=== PATIENT | female | born 1935 | race Caucasian/White ===

== ENCOUNTER 2018-11-22 08:06 | Day surgery (SDC) | payer MEDICARE, OTHER ==
[~2018-11-22] VITALS: Ht 170.2 cm; Wt 56.8 kg
[2018-11-22] MEDS ORDERED: APIX2.5T PO (09:43)
[2018-11-22] MEDS ORDERED: AMIO200T42 PO (09:43)
[2018-11-22] MEDS ORDERED: LOVA20TA2 PO (09:43)
[2018-11-22] MEDS ORDERED: LEVO25TA4 PO (09:43)
[2018-11-22] MEDS ORDERED: ASPI-496 PO (09:48)
[2018-11-22 09:57] LABS: ANION GAP 7 mmol/L (5-15); CALCIUM 8.6 mg/dL (8.5-10.1); CHLORIDE 111 mmol/L (98-107); CREATININE 1.29 mg/dL (0.55-1.02)
[2018-11-22] MEDS ORDERED: PROPOFOL 10 MG/ML, 20ML ONE (12:05)
== END 2018-11-22 13:48 | disposition home or self-care (01) ==
LOC: CACL 08:06
PROVIDERS: ATTEND Internal Medicine Cardiovascular Disease
DX: I48.91 Unspecified atrial fibrillation (principal); E78.5 Hyperlipidemia, unspecified; I25.10 Atherosclerotic heart disease of native coronary artery without angina pectoris; Z79.899 Other long term (current) drug therapy; Z98.890 Other specified postprocedural states
CPT/HCPCS: 36415; 80048; 92960; J2704

== ENCOUNTER 2019-06-08 13:13 | Observation (INO) | payer MEDICARE ==
[~2019-06-08] VITALS: Ht 170.2 cm; Wt 56.5 kg
[~2019-06-08 13:13] MED LIST: AMIO200T42 PO; APIX2.5T PO; ASPI-496 PO; LEVO25TA4 PO; LOVA20TA2 PO; SENN-177 PO; TAMS-11 PO
--- NOTE | 2019-06-08 13:30 | NUR ---
PT BIB [facility] FOR FEELING LIGHTHEADED, LEGS WEAK AND BOTH ARMS HURTED WHILE WALKING. PT DENIED ANY CP OR SOB. [facility] HAD A HEAR RATE OF 223 [employer] WORK[employer] AND GAVE 500 MLS OF NS AND PT CAME DOWN TO 110 AFTER BEING IN AMBULANCE. PT ON MONITOR, DENEIS ANY CP OR SOB NOW. PT GIVEN CALL LIGHT AND UPDATED ON POC.
[2019-06-08] MEDS ORDERED: SODIUM CHLORIDE FLUSH 10ML SYR IVF ONE (14:00)
[2019-06-08] MEDS ORDERED: SODIUM CHLORIDE 0.9% 1,000ML IVBOLUS ONE (14:00)
[2019-06-08] MEDS ORDERED: LOSARTAN PO (14:04)
--- NOTE | 2019-06-08 14:25 | NUR ---
PT UP TO RESTROOM WITH ASSIAT FOR UA SPECIMEN. PT C/O MINMAL LEG WEAKNESS. WHILE WALKING, DENIED DIZZINESS.
[2019-06-08 14:27] LABS: BASOPHILS # (AUTO) 0.03 x10^3/uL (0-0.1); BASOPHILS % (AUTO) 1 % (0-1); EOSINOPHILS # (AUTO) 0.04 x10^3/uL (0-0.4); EOSINOPHILS % (AUTO) 1 % (1-7); LYMPHOCYTES # (AUTO) 0.89 x10^3/uL (1-3.4); LYMPHOCYTES % (AUTO) 19 % (22-44); MD NO; MEAN CORPUSCULAR HEMOGLOBIN 32.1 pg (27.0-34.8); MEAN CORPUSCULAR HGB CONC 32.7 g/dL (32.4-35.8); MEAN CORPUSCULAR VOLUME 98.1 fL (80-100); MEAN PLATELET VOLUME 8.4 fL (7.4-10.4); MONOCYTES # (AUTO) 0.32 x10^3/uL (0.2-0.8); MONOCYTES % (AUTO) 7 % (2-9); NEUTROPHILS # (AUTO) 3.51 x10^3/uL (1.8-6.8); NEUTROPHILS % (AUTO) 73 % (42-75); PLATELET COUNT 195 x10^3/uL (130-400); RED BLOOD COUNT 3.54 x10^6/uL (3.82-5.3)
[2019-06-08 14:32] LABS: ALANINE AMINOTRANSFERASE 15 U/L (12-78); ALBUMIN 3.8 g/dL (3.4-5.0); ANION GAP 5 mmol/L (5-15); CALCIUM 8.6 mg/dL (8.5-10.1); CHLORIDE 110 mmol/L (98-107); CREATININE 1.21 mg/dL (0.55-1.02)
[2019-06-08 14:36] LABS: ALKALINE PHOSPHATASE 81 U/L (45-117); BILIRUBIN,TOTAL 0.4 mg/dL (0.2-1.0); TOTAL PROTEIN 6.9 g/dL (6.4-8.2); TROPONIN I 0.019 ng/mL (0.000-0.045)
[2019-06-08 14:44] LABS: MICROSCOPIC NOT IND
[2019-06-08 14:45] LABS: CULTURE INDICATED? NO
--- NOTE | 2019-06-08 14:52 | NUR ---
CHART UP FOR MD RECHECK. PT AWARE.
[2019-06-08] MEDS ORDERED: FUROSEMIDE 40 MG/4 ML ONE (15:54)
[2019-06-08] MEDS ORDERED: METOPROLOL TARTRATE 25 MG TABLET ONE (15:55)
[2019-06-08] MEDS ORDERED: FUROSEMIDE 40 MG/4 ML IV ONE (16:00)
[2019-06-08] MEDS ORDERED: METOPROLOL TARTRATE 25 MG TABLET PO ONE (16:00)
[2019-06-08] MEDS ORDERED: DOCUSATE 100 MG CAPSULE PO PRN (16:30)
[2019-06-08] MEDS ORDERED: POLYETHYLENE GLYCOL 17 GM PACKET PO PRN (16:30)
[2019-06-08] MEDS ORDERED: MAGNESIUM SULFATE PMX 2GM/50ML 50 ML IV ONE (16:30)
[2019-06-08] MEDS ORDERED: ACETAMINOPHEN 325 MG TABLET PO PRN (16:30)
[2019-06-08] MEDS ORDERED: ONDANSETRON ODT 4 MG PO PRN (16:30)
[2019-06-08] MEDS: METOPROLOL TARTRATE 25 MG TABLET PO SCH (16:30)
[2019-06-08 16:47] LABS: CHOLESTEROL, TOTAL 100 mg/dL (140-239); TRIGLYCERIDES 60 mg/dL (50-200); VLDL CHOLESTEROL 12 mg/dL (0-25)
[2019-06-08 16:49] LABS: CHOL/HDL RATIO 1.9; HDL CHOL % 53 % (28-40); HDL CHOLESTEROL (DIRECT) 53 mg/dL (40-60); LDL CHOLESTEROL,CALCULATED 35 mg/dL (54-169); LDL/HDL RATIO 0.7 (0.5-3.0); TROPONIN I 0.023 ng/mL (0.000-0.045)
[2019-06-08 17:04] VITALS: BP 128/78
[2019-06-08 18:44] VITALS: BP 105/60
[2019-06-08] MEDS: APIXABAN 2.5 MG TABLET PO SCH (20:18)
[2019-06-08] MEDS: SODIUM CHLORIDE FLUSH 10ML SYR IVF SCH (20:19)
[2019-06-08] MEDS ORDERED: LOVASTATIN 20 MG TABLET PO SCH (21:00)
[2019-06-09 00:44] VITALS: BP 112/76
[2019-06-09] MEDS: METOPROLOL TARTRATE 25 MG TABLET PO SCH (00:54)
[2019-06-09 04:52] LABS: BASOPHILS # (AUTO) 0.04 x10^3/uL (0-0.1); BASOPHILS % (AUTO) 1 % (0-1); EOSINOPHILS # (AUTO) 0.05 x10^3/uL (0-0.4); EOSINOPHILS % (AUTO) 1 % (1-7); LYMPHOCYTES # (AUTO) 1.94 x10^3/uL (1-3.4); LYMPHOCYTES % (AUTO) 38 % (22-44); MD NO; MEAN CORPUSCULAR HEMOGLOBIN 32.6 pg (27.0-34.8); MEAN CORPUSCULAR HGB CONC 33.1 g/dL (32.4-35.8); MEAN CORPUSCULAR VOLUME 98.5 fL (80-100); MEAN PLATELET VOLUME 8.5 fL (7.4-10.4); MONOCYTES # (AUTO) 0.61 x10^3/uL (0.2-0.8); MONOCYTES % (AUTO) 12 % (2-9); NEUTROPHILS # (AUTO) 2.43 x10^3/uL (1.8-6.8); NEUTROPHILS % (AUTO) 48 % (42-75); PLATELET COUNT 190 x10^3/uL (130-400); RED BLOOD COUNT 3.34 x10^6/uL (3.82-5.3); RED CELL DISTRIBUTION WIDTH 15.7 % (9.6-15.2)
[2019-06-09 05:00] LABS: CHLORIDE 112 mmol/L (98-107)
[2019-06-09 05:04] LABS: ALANINE AMINOTRANSFERASE 12 U/L (12-78); ALBUMIN 3.4 g/dL (3.4-5.0); ALKALINE PHOSPHATASE 72 U/L (45-117); ANION GAP 7 mmol/L (5-15); BILIRUBIN,TOTAL 0.3 mg/dL (0.2-1.0); CALCIUM 8.5 mg/dL (8.5-10.1); CREATININE 1.29 mg/dL (0.55-1.02); TOTAL PROTEIN 6.2 g/dL (6.4-8.2)
[2019-06-09 07:37] VITALS: BP 91/46
[2019-06-09] MEDS: APIXABAN 2.5 MG TABLET PO SCH (08:28)
[2019-06-09] MEDS: SODIUM CHLORIDE FLUSH 10ML SYR IVF SCH (08:28)
[2019-06-09] MEDS ORDERED: AMIODARONE 200 MG TABLET PO SCH (09:00)
[2019-06-09] MEDS ORDERED: ASPIRIN 81 MG TABLET EC PO SCH (09:00)
[2019-06-09] MEDS ORDERED: LEVOTHYROXINE 25 MCG TABLET PO SCH (09:00)
[2019-06-09] MEDS ORDERED: METOPROLOL SUCCINATE 25 MG TAB.ER.24H PO SCH (09:30)
[2019-06-09] MEDS ORDERED: METO25TA91 PO (09:44)
--- NOTE | 2019-06-09 11:34 | NUR ---
REC: Reg/thins; no swallowing precautions indicated Addendum: 06/09/19 at 1135 by Hailey ROSARIO Amended: Links added.
[2019-06-09 13:59] VITALS: BP 147/76
== END 2019-06-09 16:29 | disposition home or self-care (01) ==
LOC: ED 15:23 → EDIP 15:24 → INTOOBSV 15:24 → ED 15:47 → 5SO 16:57 → DCLOUNGE 06-09 16:20
PROVIDERS: ADMIT Internal Medicine; ATTEND Internal Medicine
DX: I48.0 Paroxysmal atrial fibrillation (principal); D68.69 Other thrombophilia; I48.4 Atypical atrial flutter; E03.9 Hypothyroidism, unspecified; E04.2 Nontoxic multinodular goiter; E78.5 Hyperlipidemia, unspecified; E83.42 Hypomagnesemia; I25.10 Atherosclerotic heart disease of native coronary artery without angina pectoris; I25.2 Old myocardial infarction; I50.9 Heart failure, unspecified; I44.0 Atrioventricular block, first degree; K59.00 Constipation, unspecified; N18.3 Chronic kidney disease, stage 3 (moderate); N20.0 Calculus of kidney; Z87.891 Personal history of nicotine dependence; Z79.82 Long term (current) use of aspirin
CPT/HCPCS: 36415; 71045; 80053; 80061; 81003; 83735; 83880; 84100; 84439; 84443; 84484; 85025; 92610; 93005; 93306; 96365; 96366; 96375; 99285; G0378; J1940; J3475; J7030

== ENCOUNTER 2019-06-11 19:01 | Observation (INO) | payer MEDICARE ==
[~2019-06-11] VITALS: Ht 170.2 cm; Wt 57.7 kg
[~2019-06-11 19:01] MED LIST changes: +LOSARTAN PO; +METO25TA91 PO
[2019-06-11] MEDS ORDERED: DILTIAZEM 5 MG/ML, 5ML ONE (19:03)
[2019-06-11] MEDS ORDERED: METOPROLOL 1 MG/ML, 5ML IVPush ONE (19:06)
[2019-06-11] MEDS ORDERED: METOPROLOL 1 MG/ML, 5ML ONE (19:19)
[2019-06-11] MEDS ORDERED: ASPIRIN 81 MG TABLET CHEW PO ONE (19:30)
[2019-06-11] MEDS ORDERED: DILTIAZEM 5 MG/ML, 5ML IVPush ONE (19:30)
--- NOTE | 2019-06-11 19:30 | NUR ---
PT BROUGHT IN BY EMS WITH TACHYCARDIA AND AFIB. PT PUT ON MONITORING, PT HR 132 AT ADMIT. PT REPORTS NO CHEST PAIN. EKG PERFORMED ON ADMIT, AFIB CONFIRMED. PT GIVEN DILTIAZEM, METOPROLOL, AND 81MG ASPIRIN PER OCT. REPEAT EKG PERFORMED, HR NOW IN 80S. ALL PT NEEDS MET AND QUESTIONS ANSWERED.
[2019-06-11] MEDS ORDERED: ASPIRIN 81 MG TABLET CHEW ONE (19:33)
[2019-06-11 19:36] LABS: ALANINE AMINOTRANSFERASE 13 U/L (12-78); ALBUMIN 3.9 g/dL (3.4-5.0); ANION GAP 10 mmol/L (5-15); CALCIUM 8.8 mg/dL (8.5-10.1); CHLORIDE 110 mmol/L (98-107); CREATININE 1.21 mg/dL (0.55-1.02)
[2019-06-11 19:37] LABS: BASOPHILS # (AUTO) 0.02 x10^3/uL (0-0.1); BASOPHILS % (AUTO) 0 % (0-1); EOSINOPHILS # (AUTO) 0.03 x10^3/uL (0-0.4); EOSINOPHILS % (AUTO) 1 % (1-7); LYMPHOCYTES # (AUTO) 1.48 x10^3/uL (1-3.4); LYMPHOCYTES % (AUTO) 29 % (22-44); MD NO; MEAN CORPUSCULAR HEMOGLOBIN 32.4 pg (27.0-34.8); MEAN CORPUSCULAR HGB CONC 32.8 g/dL (32.4-35.8); MEAN CORPUSCULAR VOLUME 98.8 fL (80-100); MEAN PLATELET VOLUME 8.2 fL (7.4-10.4); MONOCYTES # (AUTO) 0.55 x10^3/uL (0.2-0.8); MONOCYTES % (AUTO) 11 % (2-9); NEUTROPHILS # (AUTO) 3.13 x10^3/uL (1.8-6.8); NEUTROPHILS % (AUTO) 60 % (42-75); PLATELET COUNT 204 x10^3/uL (130-400); RED BLOOD COUNT 3.84 x10^6/uL (3.82-5.3)
[2019-06-11 19:40] LABS: ALKALINE PHOSPHATASE 87 U/L (45-117); BILIRUBIN,TOTAL 0.4 mg/dL (0.2-1.0); TOTAL PROTEIN 7.5 g/dL (6.4-8.2); TROPONIN I 0.026 ng/mL (0.000-0.045)
[2019-06-11 20:02] LABS: INTERNATIONAL NORMALIZED RATIO 1.03 (0.93-1.1); PROTHROMBIN TIME 10.8 Seconds (9.6-11.5)
--- NOTE | 2019-06-11 20:10 | NUR ---
CARDS CALLED AT 2006
--- NOTE | 2019-06-11 20:42 | NUR ---
FIRST ATTEMPT TO GIVE REPORT.
--- NOTE | 2019-06-11 20:50 | NUR ---
REPORT GIVEN TO SUNIL BURKS.
[2019-06-11] MEDS: MELATONIN 3 MG TABLET PO SCH ×2 (21:00→22:56)
[2019-06-11 21:27] VITALS: BP 113/74
[2019-06-11] MEDS ORDERED: LABETALOL 5MG/ML, 20ML IVPush PRN (21:30)
[2019-06-11] MEDS ORDERED: ACETAMINOPHEN 325 MG TABLET PO PRN (21:30)
[2019-06-11] MEDS ORDERED: ONDANSETRON 2MG/ML, 2ML IVPush PRN (21:30)
[2019-06-11] MEDS ORDERED: DOCUSATE 100 MG CAPSULE PO PRN (21:30)
[2019-06-12 01:37] VITALS: BP 104/63
[2019-06-12 01:56] LABS: TROPONIN I 0.181 ng/mL (0.000-0.045)
[2019-06-12 07:18] VITALS: BP 110/56
[2019-06-12 07:30] LABS: ANION GAP 7 mmol/L (5-15); CALCIUM 8.4 mg/dL (8.5-10.1); CHLORIDE 112 mmol/L (98-107)
[2019-06-12 07:32] LABS: MEAN CORPUSCULAR HEMOGLOBIN 32.2 pg (27.0-34.8); MEAN CORPUSCULAR HGB CONC 33.1 g/dL (32.4-35.8); MEAN CORPUSCULAR VOLUME 97.3 fL (80-100); PLATELET COUNT 178 x10^3/uL (130-400); RED BLOOD COUNT 3.49 x10^6/uL (3.82-5.3); RED CELL DISTRIBUTION WIDTH 15.9 % (9.6-15.2)
[2019-06-12 07:35] LABS: CREATININE 1.13 mg/dL (0.55-1.02); TROPONIN I 0.058 ng/mL (0.000-0.045)
[2019-06-12 07:58] LABS: MD YES
[2019-06-12 08:01] LABS: BASOS#(MANUAL) 0.08 x10^3/uL (0-0.1); BASOS% (MANUAL) 2 % (0-1); EOS#(MANUAL) 0.04 x10^3/uL (0.0-0.4); EOS% (MANUAL) 1 % (1-7); LYMPHS% (MANUAL) 36 % (22-44); MONOS#(MANUAL) 0.47 x10^3/uL (0.3-2.7); MONOS% (MANUAL) 12 % (2-9); REACTIVE LYMPHS # (MANUAL) 0.08 x10^3/uL (0-0); REACTIVE LYMPHS % (MANUAL) 2 % (0-0); SEG#(MANUAL) 1.83 x10^3/uL (1.8-6.8); SEGS% (MANUAL) 47 % (42-75)
[2019-06-12 08:03] LABS: <PLATELET ESTIMATE> ADEQUATE; <PLT MORPHOLOGY> NORMAL PLT MORPH; ANISOCYTOSIS 1+
[2019-06-12] MEDS: METOPROLOL SUCCINATE 25 MG TAB.ER.24H PO SCH (10:56)
[2019-06-12 12:18] VITALS: BP 90/56
[2019-06-12 20:18] VITALS: BP 111/72
[2019-06-12] MEDS: APIXABAN 2.5 MG TABLET PO SCH (20:19)
[2019-06-12] MEDS: MELATONIN 3 MG TABLET PO SCH (20:21)
[2019-06-13 03:55] VITALS: BP 108/70
[2019-06-13] MEDS: METOPROLOL SUCCINATE 25 MG TAB.ER.24H PO SCH (05:54)
[2019-06-13 06:29] VITALS: BP 115/64
[2019-06-13] MEDS ORDERED: LEVOTHYROXINE 25 MCG TABLET PO SCH (08:30)
[2019-06-13] MEDS: APIXABAN 2.5 MG TABLET PO SCH (09:10)
[2019-06-13 12:14] VITALS: BP 119/58
[2019-07-24] MEDS ORDERED: POTA20TA14 PO (16:50)
[2019-07-24] MEDS ORDERED: FURO40TA6 PO (16:50)
[2019-07-28] MEDS ORDERED: ATOR40TA78 PO (13:14)
[2019-07-28] MEDS ORDERED: ASPI81TA45 PO (13:14)
[2019-07-28] MEDS ORDERED: CEFD300C37 PO ×2 (13:14)
[2019-07-28] MEDS ORDERED: METO-93 PO (13:14)
[2019-07-28] MEDS ORDERED: ERGO500017 PO (13:14)
[2019-07-28] MEDS ORDERED: DIGO125T PO (13:14)
== END 2019-06-13 12:40 | disposition home or self-care (01) ==
LOC: ED 20:06 → INTOOBSV 20:07 → EDIP 20:07 → 5SO 21:00 → DCLOUNGE 06-13 12:30
PROVIDERS: ADMIT Internal Medicine; ATTEND Internal Medicine
DX: I48.0 Paroxysmal atrial fibrillation (principal); E03.9 Hypothyroidism, unspecified; E78.5 Hyperlipidemia, unspecified; I25.10 Atherosclerotic heart disease of native coronary artery without angina pectoris; I25.2 Old myocardial infarction; I50.9 Heart failure, unspecified; N18.3 Chronic kidney disease, stage 3 (moderate); Z79.01 Long term (current) use of anticoagulants; Z87.891 Personal history of nicotine dependence; Z95.5 Presence of coronary angioplasty implant and graft; Z91.14 Patient's other noncompliance with medication regimen; Z79.82 Long term (current) use of aspirin
CPT/HCPCS: 36415; 71045; 80048; 80053; 83605; 84484; 85025; 85610; 85730; 93005; 96374; 96375; 99285; G0378

== ENCOUNTER 2019-07-31 22:06 | Observation (INO) | payer MEDICARE, OTHER ==
[~2019-07-31] VITALS: Ht 175.3 cm; Wt 60.7 kg
[~2019-07-31 22:06] MED LIST changes: +ASPI81TA45 PO; +ATOR40TA78 PO; +CEFD300C37 PO; +DIGO125T PO; +ERGO500017 PO; +FURO40TA6 PO; +METO-93 PO; +POTA20TA14 PO
--- NOTE | 2019-07-31 22:21 | NUR ---
Patient BIB ambulance and states she ate meals on wheels tonight then experienced abd pain, N/V. This started around 1800. Patient states she vomited approx 4 times. She is unable to have a bowel movement. Patient appears nauseous. Lower abd quadrant firm and tender.
[2019-07-31] MEDS ORDERED: ONDANSETRON 2MG/ML, 2ML ONE (22:29)
[2019-07-31] MEDS ORDERED: SODIUM CHLORIDE FLUSH 10ML SYR IVF ONE (22:30)
[2019-07-31] MEDS ORDERED: ONDANSETRON 2MG/ML, 2ML IVPush ONE (23:00)
[2019-07-31] MEDS ORDERED: MORPHINE SULFATE 4 MG/ML, 1ML ONE (23:01)
[2019-07-31] MEDS: MORPHINE SULFATE 4 MG/ML, 1ML IVPush PRN (23:03)
--- NOTE | 2019-07-31 23:19 | NUR ---
Patient states her pain decreased from a 8/10 to a 5/10.
[2019-07-31] MEDS ORDERED: FENTANYL PF 100 MCG/2ML ONE (23:41)
--- NOTE | 2019-07-31 23:44 | NUR ---
CT PENDING LAB/CREATINE.
[2019-07-31 23:52] LABS: BASOPHILS # (AUTO) 0.04 x10^3/uL (0-0.1); BASOPHILS % (AUTO) 0 % (0-1); EOSINOPHILS # (AUTO) 0.07 x10^3/uL (0-0.4); EOSINOPHILS % (AUTO) 1 % (1-7); LYMPHOCYTES # (AUTO) 1.11 x10^3/uL (1-3.4); LYMPHOCYTES % (AUTO) 13 % (22-44); MD NO; MEAN CORPUSCULAR HEMOGLOBIN 31.7 pg (27.0-34.8); MEAN CORPUSCULAR HGB CONC 32.1 g/dL (32.4-35.8); MEAN CORPUSCULAR VOLUME 98.7 fL (80-100); MEAN PLATELET VOLUME 8.5 fL (7.4-10.4); MONOCYTES # (AUTO) 0.39 x10^3/uL (0.2-0.8); MONOCYTES % (AUTO) 5 % (2-9); NEUTROPHILS # (AUTO) 6.77 x10^3/uL (1.8-6.8); NEUTROPHILS % (AUTO) 81 % (42-75); PLATELET COUNT 213 x10^3/uL (130-400); RED BLOOD COUNT 3.79 x10^6/uL (3.82-5.3); RED CELL DISTRIBUTION WIDTH 15.4 % (9.6-15.2)
[2019-08-01] MEDS ORDERED: SODIUM CHLORIDE 0.9% 1,000ML IVBOLUS ONE
[2019-08-01] MEDS ORDERED: FENTANYL PF 100 MCG/2ML IV ONE
[2019-08-01 00:01] LABS: ALANINE AMINOTRANSFERASE 22 U/L (12-78); ALBUMIN 3.5 g/dL (3.4-5.0); ANION GAP 8 mmol/L (5-15); CALCIUM 8.7 mg/dL (8.5-10.1); CHLORIDE 112 mmol/L (98-107); CREATININE 1.28 mg/dL (0.55-1.02)
[2019-08-01 00:03] LABS: ALKALINE PHOSPHATASE 131 U/L (45-117); BILIRUBIN,TOTAL 0.6 mg/dL (0.2-1.0); TOTAL PROTEIN 6.9 g/dL (6.4-8.2)
--- NOTE | 2019-08-01 00:22 | NUR ---
urinary catheter difficult to place w/ multiple rn's attempting. Md at bedside to attempt valero. Valero accomplished and approximately 500 ml of dark yellow urine output noted. Pt tx to ct at this time.
[2019-08-01] MEDS ORDERED: OMNIPAQUE 350 MG/ML, 100ML BOTTLE ONE (00:36)
[2019-08-01 01:21] LABS: MICROSCOPIC NOT IND
[2019-08-01 01:23] LABS: CULTURE INDICATED? NO
[2019-08-01] MEDS ORDERED: SODIUM CHLORIDE 0.9% 1,000 ML IV SCH (01:24)
[2019-08-01] MEDS ORDERED: ERGOCALCIFEROL 50,000 UNIT CAPSULE PO SCH (01:30)
[2019-08-01] MEDS ORDERED: hydrALAzine 20 MG/ML, 1ML IVPush PRN (01:30)
[2019-08-01] MEDS ORDERED: ONDANSETRON ODT 4 MG PO PRN (01:30)
[2019-08-01] MEDS ORDERED: PROMETHAZINE 25 MG/ML, 1ML IM PRN (01:30)
[2019-08-01] MEDS ORDERED: DOCUSATE 100 MG CAPSULE PO PRN (01:30)
[2019-08-01] MEDS ORDERED: ONDANSETRON 2MG/ML, 2ML IVPush PRN (01:30)
[2019-08-01] MEDS ORDERED: CEFTRIAXONE PMX 2GM/50ML 50 ML IV SCH (01:30)
[2019-08-01] MEDS ORDERED: OXYcodone IR 5MG TABLET PO PRN ×2 (01:30→09:00)
[2019-08-01] MEDS ORDERED: METRONIDAZOLE PMX 500MG/100ML 100 ML IV SCH (01:30)
[2019-08-01] MEDS ORDERED: ACETAMINOPHEN 325 MG TABLET PO PRN ×2 (01:30→09:00)
[2019-08-01] MEDS ORDERED: morphine SULFATE 10 MG/ML, 1ML IVPush PRN ×2 (01:30→10:30)
[2019-08-01 04:11] LABS: FREE T4 (FREE THYROXINE) 1.41 ng/dL (0.76-1.46)
[2019-08-01 04:27] VITALS: BP 116/66
[2019-08-01] MEDS: MORPHINE SULFATE 4 MG/ML, 1ML IVPush PRN ×2 (04:35→04:36)
[2019-08-01] MEDS: ASPIRIN 81 MG TABLET EC PO SCH (06:52)
[2019-08-01 07:22] VITALS: BP 104/58
[2019-08-01] MEDS: METOPROLOL SUCCINATE 50 MG TAB.ER.24H PO SCH (08:59)
[2019-08-01] MEDS: APIXABAN 2.5 MG TABLET PO SCH ×2 (08:59→20:17)
[2019-08-01] MEDS ORDERED: LEVOTHYROXINE 25 MCG TABLET PO SCH (09:00)
[2019-08-01] MEDS ORDERED: DIGOXIN 0.125 MG TABLET PO SCH (09:00)
[2019-08-01] MEDS ORDERED: ACID1TAB7 PO (11:15)
[2019-08-01 13:21] VITALS: BP 108/72
[2019-08-01 20:38] VITALS: BP 114/60
[2019-08-01] MEDS ORDERED: ATORVASTATIN 40 MG TABLET PO SCH (21:00)
[2019-08-02] MEDS ORDERED: SODIUM CHLORIDE 0.9% 1,000 ML IV SCH (01:24)
[2019-08-02 02:00] VITALS: BP 115/58
[2019-08-02] MEDS: ASPIRIN 81 MG TABLET EC PO SCH (05:54)
[2019-08-02 07:24] VITALS: BP 112/67
[2019-08-02 08:51] VITALS: BP 99/61
[2019-08-02 08:54] VITALS: BP 95/47
[2019-08-02 08:56] VITALS: BP 99/43
[2019-08-02] MEDS: APIXABAN 2.5 MG TABLET PO SCH (09:08)
[2019-08-02] MEDS: METOPROLOL SUCCINATE 50 MG TAB.ER.24H PO SCH (09:08)
[2019-08-03] MEDS ORDERED: DIGOXIN 0.125 MG TABLET PO SCH (09:00)
== END 2019-08-02 10:42 | disposition home health service (06) ==
LOC: ED 08-01 00:09 → EDIP 08-01 00:59 → INTOOBSV 08-01 00:59 → 5SO 08-01 01:58
PROVIDERS: ADMIT Internal Medicine; ATTEND Internal Medicine
DX: K52.9 Noninfective gastroenteritis and colitis, unspecified (principal); R33.9 Retention of urine, unspecified; N18.3 Chronic kidney disease, stage 3 (moderate); I95.9 Hypotension, unspecified; I48.91 Unspecified atrial fibrillation; E03.9 Hypothyroidism, unspecified; E78.5 Hyperlipidemia, unspecified; G47.00 Insomnia, unspecified; I25.10 Atherosclerotic heart disease of native coronary artery without angina pectoris; I25.2 Old myocardial infarction; I50.9 Heart failure, unspecified; I73.00 Raynaud's syndrome without gangrene; M32.9 Systemic lupus erythematosus, unspecified; Z80.1 Family history of malignant neoplasm of trachea, bronchus and lung; Z87.442 Personal history of urinary calculi; Z87.891 Personal history of nicotine dependence; Z90.49 Acquired absence of other specified parts of digestive tract; Z79.01 Long term (current) use of anticoagulants; Z79.82 Long term (current) use of aspirin; Z90.710 Acquired absence of both cervix and uterus; Z79.899 Other long term (current) drug therapy
CPT/HCPCS: 36415; 74177; 80053; 80162; 81003; 83036; 83690; 83735; 84439; 84443; 85025; 93005; 96361; 96365; 96375; 97162; 97165; 99291; G0378; J2270; J3010; J7030; Q9967; 96374

== ENCOUNTER 2019-08-04 23:23 | Observation (INO) | payer MEDICARE, OTHER ==
[~2019-08-04] VITALS: Ht 175.3 cm; Wt 56.0 kg
[~2019-08-04 23:23] MED LIST changes: +ACID1TAB7 PO
[2019-08-04] MEDS ORDERED: DICYCLOMINE 20 MG TABLET ONE (23:47)
[2019-08-04] MEDS ORDERED: ACETAMINOPHEN 325 MG TABLET ONE (23:47)
[2019-08-05] MEDS ORDERED: DICYCLOMINE 20 MG TABLET PO ONE
[2019-08-05] MEDS ORDERED: ONDANSETRON 2MG/ML, 2ML IVPush ONE
[2019-08-05] MEDS ORDERED: ACETAMINOPHEN 325 MG TABLET PO ONE
[2019-08-05] MEDS ORDERED: ONDANSETRON 2MG/ML, 2ML ONE (00:08)
[2019-08-05 00:13] LABS: BASOPHILS # (AUTO) 0.01 x10^3/uL (0-0.1); BASOPHILS % (AUTO) 0 % (0-1); EOSINOPHILS # (AUTO) 0.05 x10^3/uL (0-0.4); EOSINOPHILS % (AUTO) 1 % (1-7); LYMPHOCYTES # (AUTO) 0.86 x10^3/uL (1-3.4); LYMPHOCYTES % (AUTO) 12 % (22-44); MD NO; MEAN CORPUSCULAR HEMOGLOBIN 31.6 pg (27.0-34.8); MEAN CORPUSCULAR VOLUME 98.8 fL (80-100); MEAN PLATELET VOLUME 8.3 fL (7.4-10.4); MONOCYTES # (AUTO) 0.84 x10^3/uL (0.2-0.8); MONOCYTES % (AUTO) 12 % (2-9); NEUTROPHILS # (AUTO) 5.39 x10^3/uL (1.8-6.8); NEUTROPHILS % (AUTO) 75 % (42-75); PLATELET COUNT 231 x10^3/uL (130-400); RED BLOOD COUNT 3.59 x10^6/uL (3.82-5.3); RED CELL DISTRIBUTION WIDTH 14.5 % (9.6-15.2)
[2019-08-05 00:23] LABS: ANION GAP 8 mmol/L (5-15); CALCIUM 8.2 mg/dL (8.5-10.1); CHLORIDE 106 mmol/L (98-107); CREATININE 1.18 mg/dL (0.55-1.02)
[2019-08-05 00:24] LABS: ALANINE AMINOTRANSFERASE 35 U/L (12-78); ALBUMIN 3.2 g/dL (3.4-5.0)
[2019-08-05 00:26] LABS: ALKALINE PHOSPHATASE 124 U/L (45-117); BILIRUBIN,TOTAL 0.6 mg/dL (0.2-1.0); TOTAL PROTEIN 6.6 g/dL (6.4-8.2)
[2019-08-05] MEDS ORDERED: PINK LADY ENEMA 490 ML BOTTLE PR ONE (00:30)
--- NOTE | 2019-08-05 00:35 | NUR ---
TASK RN: MED REQUEST TUBED TO LAB
[2019-08-05 02:34] VITALS: BP 101/67
[2019-08-05] MEDS ORDERED: POLYETHYLENE GLYCOL 17 GM PACKET PO PRN (05:30)
[2019-08-05] MEDS ORDERED: BISACODYL 10 MG SUPP PR PRN (05:30)
[2019-08-05] MEDS ORDERED: ACETAMINOPHEN 325 MG TABLET PO PRN (05:30)
[2019-08-05] MEDS ORDERED: LABETALOL 5 MG/ML SYR. (IV ONLY) IVPush PRN (05:30)
[2019-08-05] MEDS ORDERED: ONDANSETRON 2MG/ML, 2ML IVPush PRN (05:30)
[2019-08-05] MEDS: ASPIRIN 81 MG TABLET EC PO SCH (06:21)
[2019-08-05] MEDS: LEVOTHYROXINE 25 MCG TABLET PO SCH (06:21)
[2019-08-05] MEDS: METOPROLOL SUCCINATE 50 MG TAB.ER.24H PO SCH (09:56)
[2019-08-05] MEDS: DIGOXIN 0.125 MG TABLET PO SCH (09:57)
[2019-08-05] MEDS: POLYETHYLENE GLYCOL 17 GM PACKET PO SCH (09:57)
[2019-08-05] MEDS: SENNA/DOCUSATE TABLET PO SCH (09:57)
[2019-08-05] MEDS: LACTOBACILLUS CHEW TABLET PO SCH ×3 (09:57→21:12)
[2019-08-05] MEDS: APIXABAN 2.5 MG TABLET PO SCH ×2 (09:57→21:12)
[2019-08-05 10:11] VITALS: BP 104/65
[2019-08-05 15:27] VITALS: BP 100/58
[2019-08-05 20:17] VITALS: BP 100/61
[2019-08-05] MEDS ORDERED: ATORVASTATIN 40 MG TABLET PO SCH (21:00)
[2019-08-06 00:56] VITALS: BP_SYST 102; BP_SYST 110; BP_DIAS 46; BP_DIAS 55
[2019-08-06] MEDS: LEVOTHYROXINE 25 MCG TABLET PO SCH (06:32)
[2019-08-06] MEDS: ASPIRIN 81 MG TABLET EC PO SCH (06:32)
[2019-08-06 06:50] VITALS: BP 106/62
[2019-08-06] MEDS: SENNA/DOCUSATE TABLET PO SCH (09:00)
[2019-08-06] MEDS: POLYETHYLENE GLYCOL 17 GM PACKET PO SCH (09:00)
[2019-08-06] MEDS ORDERED: POLY17PO5 PO (09:23)
[2019-08-06] MEDS ORDERED: DOCU100C33 PO (09:23)
[2019-08-06] MEDS: LACTOBACILLUS CHEW TABLET PO SCH (10:50)
[2019-08-06] MEDS: METOPROLOL SUCCINATE 50 MG TAB.ER.24H PO SCH (10:50)
[2019-08-06] MEDS: APIXABAN 2.5 MG TABLET PO SCH (10:50)
[2019-08-06] MEDS: DIGOXIN 0.125 MG TABLET PO SCH (10:50)
== END 2019-08-06 11:35 | disposition home or self-care (01) ==
LOC: ED 23:37 → INTOOBSV 08-05 00:28 → EDIP 08-05 00:28 → 3N 08-05 01:55 → DCLOUNGE 08-06 11:23
PROVIDERS: ADMIT Family Medicine; ATTEND Family Medicine
DX: K59.00 Constipation, unspecified (principal); E03.9 Hypothyroidism, unspecified; I48.91 Unspecified atrial fibrillation; E78.5 Hyperlipidemia, unspecified; N18.3 Chronic kidney disease, stage 3 (moderate); I25.10 Atherosclerotic heart disease of native coronary artery without angina pectoris; I25.2 Old myocardial infarction; I50.9 Heart failure, unspecified; D68.69 Other thrombophilia; I73.00 Raynaud's syndrome without gangrene; Z79.82 Long term (current) use of aspirin; Z79.899 Other long term (current) drug therapy
CPT/HCPCS: 36415; 74176; 80053; 83605; 83690; 83880; 84443; 85025; 96374; 99284; G0378; J2405

== ENCOUNTER 2019-09-08 14:37 | Observation (INO) | payer MEDICARE, OTHER ==
[~2019-09-08] VITALS: Ht 175.3 cm; Wt 43.2 kg
[~2019-09-08 14:37] MED LIST changes: +DOCU100C33 PO; +GABA300C10 PO; +MAGN400T50 PO; +POLY17PO5 PO
--- NOTE | 2019-09-08 14:57 | NUR ---
PT A&OX4, RESP EVEN & UNLABORED, SPEECH CLEAR, SKIN WNL EXCEPT FOR BLUE COLORATION TO UPPER CHEST & LOWER NECK FROM SURGERY, SURGICAL DRESSING RT UPPER CHEST. DRESSING CLEAN & DRY. PT REPORTS INTERMITTENT DIARRHEA FOR OVER A MONTH. WAS GIVEN MOVI-PREP PRIOR TO SURGERY. CARDIAC & VS MONITORING IN PROGRESS, SIDE RAILS UP X2, CALL LIGHT W/IN REACH.
[2019-09-08] MEDS ORDERED: SODIUM CHLORIDE 0.9% 1,000ML IVBOLUS ONE (15:00)
[2019-09-08] MEDS ORDERED: SODIUM CHLORIDE FLUSH 10ML SYR IVF ONE (15:00)
[2019-09-08 15:23] LABS: BASOPHILS # (AUTO) 0.02 x10^3/uL (0-0.1); BASOPHILS % (AUTO) 0 % (0-1); EOSINOPHILS # (AUTO) 0.01 x10^3/uL (0-0.4); EOSINOPHILS % (AUTO) 0 % (1-7); LYMPHOCYTES # (AUTO) 0.45 x10^3/uL (1-3.4); LYMPHOCYTES % (AUTO) 6 % (22-44); MD NO; MEAN CORPUSCULAR HEMOGLOBIN 29.9 pg (27.0-34.8); MEAN CORPUSCULAR VOLUME 93.3 fL (80-100); MEAN PLATELET VOLUME 7.4 fL (7.4-10.4); MONOCYTES # (AUTO) 0.64 x10^3/uL (0.2-0.8); MONOCYTES % (AUTO) 8 % (2-9); NEUTROPHILS # (AUTO) 6.66 x10^3/uL (1.8-6.8); NEUTROPHILS % (AUTO) 86 % (42-75); PLATELET COUNT 249 x10^3/uL (130-400); RED BLOOD COUNT 3.63 x10^6/uL (3.82-5.3); RED CELL DISTRIBUTION WIDTH 15.3 % (9.6-15.2)
[2019-09-08 15:36] LABS: ALANINE AMINOTRANSFERASE 8 U/L (12-78); ALBUMIN 2.9 g/dL (3.4-5.0); ANION GAP 8 mmol/L (5-15); CALCIUM 7.8 mg/dL (8.5-10.1); CHLORIDE 111 mmol/L (98-107)
[2019-09-08 15:39] LABS: ALKALINE PHOSPHATASE 91 U/L (45-117); BILIRUBIN,TOTAL 0.8 mg/dL (0.2-1.0); CREATININE 0.93 mg/dL (0.55-1.02); TOTAL PROTEIN 5.8 g/dL (6.4-8.2)
--- NOTE | 2019-09-08 16:43 | NUR ---
PIV INITIATED; DIFFICULT IV ACCESS. NS HUNG; 500ML BOLUS STARTED. PT SITTING UPRIGHT ON BED (PT PREFERENCE), BEAR WARMER IN USE, CARDIAC & VS MONITORING CONTINUING. MONITOR: AFIB W/ INTERMITTENT PVC'S, RATE 112-137. RESP EVEN & UNLABORED. SIDE RAILS UP X2, CALL LIGHT W/IN REACH. PT AWARE OF PENDING ADMISSION.
[2019-09-08] MEDS ORDERED: LABETALOL 5MG/ML, 20ML IVPush ONE (17:00)
[2019-09-08] MEDS ORDERED: LABETALOL 5MG/ML, 20ML ONE (17:14)
--- NOTE | 2019-09-08 17:20 | NUR ---
DR GARCIA BS FOR EXAM. LABETALOL GIVEN SLOW PUSH. IV SITE PATENT. CARDIAC & VS MONITORING CONTINUING.
--- NOTE | 2019-09-08 17:22 | NUR ---
NS 500ML BOLUS INFUSED. IV RATE DECREASED TO TKO
[2019-09-08] MEDS ORDERED: POLYETHYLENE GLYCOL 17 GM PACKET NG ONE (17:30)
[2019-09-08] MEDS ORDERED: SODIUM CHLORIDE FLUSH 10ML SYR IVF PRN (17:30)
--- NOTE | 2019-09-08 17:40 | NUR ---
PT ASSISTED TO BS COMMODE, VERY WEAK. BROWN, LIQUID DIARRHEA. SPECIMEN COLLECTED WILL BE SENT TO LAB.
--- NOTE | 2019-09-08 17:55 | NUR ---
ATTEMPTED TO GIVE REPORT TO DAISHA, RECEIVING RN. RN CALLED AWAY; SHE'LL CALL BACK. PT REPORT GIVEN TO JOSELO RUDD PT CURRENTLY IN RADIOLOGY.
[2019-09-08] MEDS ORDERED: ONDANSETRON 2MG/ML, 2ML IVPush PRN (18:00)
[2019-09-08] MEDS ORDERED: ONDANSETRON ODT 4 MG PO PRN (18:00)
[2019-09-08] MEDS ORDERED: ACETAMINOPHEN 325 MG TABLET PO PRN (18:00)
[2019-09-08] MEDS ORDERED: morphine SULFATE 10 MG/ML, 1ML IVPush PRN (18:00)
[2019-09-08] MEDS ORDERED: hydrALAzine 20 MG/ML, 1ML IVPush PRN (18:00)
[2019-09-08] MEDS ORDERED: SODIUM CHLORIDE 0.9%, 500ML IVBOLUS ONE (18:00)
[2019-09-08] MEDS: METOPROLOL TARTRATE 50 MG TABLET PO SCH (18:00)
--- NOTE | 2019-09-08 18:03 | NUR ---
PT REPORT GIVEN TO SUNIL BLOOD FOR ROOM 511-2 Addendum: 09/08/19 at 1804 by NITZA DISCUSSED NEW BOLUS ORDER; BOLUS WILL BE STARTED PRIOR TO TRANSFER TO [facility].
[2019-09-08 18:37] LABS: CLOSTRIDIUM DIFFICILE ANTIGEN NEGATIVE; CLOSTRIDIUM DIFFICILE TOXIN NEGATIVE (Negative)
[2019-09-08] MEDS: D5%-0.45NACL+KCL 20MEQ 1,000 ML IV SCH (18:45)
[2019-09-08 19:45] VITALS: BP 107/61
[2019-09-08 20:00] VITALS: BP 107/61
[2019-09-08] MEDS: ATORVASTATIN 40 MG TABLET PO SCH (20:25)
[2019-09-08] MEDS: MAGNESIUM OXIDE 400 MG TABLET PO SCH (20:25)
[2019-09-08] MEDS: GABAPENTIN 300 MG CAPSULE PO SCH (20:25)
[2019-09-08] MEDS: LACTOBACILLUS CHEW TABLET PO SCH (20:25)
[2019-09-08] MEDS: APIXABAN 2.5 MG TABLET PO SCH (20:25)
[2019-09-08 21:30] VITALS: BP 90/49
[2019-09-08 22:00] VITALS: BP 94/53
[2019-09-08 22:49] LABS: TROPONIN I 0.242 ng/mL (0.000-0.045)
[2019-09-09] VITALS (7 sets, daily range): BP systolic 98–114; BP diastolic 48–70
[2019-09-09] MEDS: D5%-0.45NACL+KCL 20MEQ 1,000 ML IV SCH ×2 (04:33→16:41)
[2019-09-09] MEDS: ASPIRIN 81 MG TABLET EC PO SCH (05:08)
[2019-09-09 05:48] LABS: MEAN CORPUSCULAR HEMOGLOBIN 30.1 pg (27.0-34.8); MEAN CORPUSCULAR HGB CONC 32.5 g/dL (32.4-35.8); MEAN CORPUSCULAR VOLUME 92.8 fL (80-100); MEAN PLATELET VOLUME 8.3 fL (7.4-10.4); PLATELET COUNT 206 x10^3/uL (130-400); RED BLOOD COUNT 3.11 x10^6/uL (3.82-5.3); RED CELL DISTRIBUTION WIDTH 15.3 % (9.6-15.2)
[2019-09-09 06:00] LABS: ANION GAP 6 mmol/L (5-15); CALCIUM 7.6 mg/dL (8.5-10.1); CHLORIDE 112 mmol/L (98-107)
[2019-09-09 06:06] LABS: CREATININE 1.08 mg/dL (0.55-1.02)
[2019-09-09 06:10] LABS: BASOPHILS # (AUTO) 0.02 x10^3/uL (0-0.1); BASOPHILS % (AUTO) 1 % (0-1); EOSINOPHILS # (AUTO) 0.01 x10^3/uL (0-0.4); EOSINOPHILS % (AUTO) 0 % (1-7); LYMPHOCYTES # (AUTO) 1.12 x10^3/uL (1-3.4); LYMPHOCYTES % (AUTO) 27 % (22-44); MD SCAN; MONOCYTES # (AUTO) 0.74 x10^3/uL (0.2-0.8); MONOCYTES % (AUTO) 18 % (2-9); NEUTROPHILS # (AUTO) 2.28 x10^3/uL (1.8-6.8); NEUTROPHILS % (AUTO) 55 % (42-75)
[2019-09-09] MEDS: POLYETHYLENE GLYCOL 17 GM PACKET PO SCH (09:00)
[2019-09-09] MEDS ORDERED: LEVOTHYROXINE 25 MCG TABLET PO SCH (09:00)
[2019-09-09] MEDS: APIXABAN 2.5 MG TABLET PO SCH ×2 (09:33→21:36)
[2019-09-09] MEDS: GABAPENTIN 300 MG CAPSULE PO SCH ×3 (09:33→21:36)
[2019-09-09] MEDS: MAGNESIUM OXIDE 400 MG TABLET PO SCH ×2 (09:33→21:36)
[2019-09-09] MEDS: DIGOXIN 0.125 MG TABLET PO SCH (09:34)
[2019-09-09] MEDS: LACTOBACILLUS CHEW TABLET PO SCH ×3 (09:34→21:36)
[2019-09-09] MEDS: METOPROLOL TARTRATE 50 MG TABLET PO SCH ×2 (09:35→18:47)
[2019-09-09] MEDS ORDERED: BISACODYL 10 MG SUPP PR PRN (17:30)
[2019-09-09] MEDS ORDERED: LACTULOSE 20 GM/30 ML UDC PO PRN (17:30)
[2019-09-09] MEDS ORDERED: SENNA/DOCUSATE TABLET PO SCH (21:00)
[2019-09-09] MEDS: ATORVASTATIN 40 MG TABLET PO SCH (21:36)
[2019-09-10] MEDS ORDERED: MELATONIN 5 MG TABLET PO PRN (01:30)
[2019-09-10] MEDS ORDERED: MELATONIN 5 MG TABLET ONE (01:31)
[2019-09-10 04:12] VITALS: BP 99/65
[2019-09-10] MEDS: D5%-0.45NACL+KCL 20MEQ 1,000 ML IV SCH ×2 (04:54→13:11)
[2019-09-10 05:35] LABS: ANION GAP 6 mmol/L (5-15); C-REACTIVE PROTEIN, QUANT 0.45 mg/dL (0.02-0.49); CALCIUM 7.8 mg/dL (8.5-10.1); CHLORIDE 113 mmol/L (98-107)
[2019-09-10 05:56] LABS: MEAN CORPUSCULAR HEMOGLOBIN 30.1 pg (27.0-34.8); MEAN CORPUSCULAR HGB CONC 32.5 g/dL (32.4-35.8); MEAN CORPUSCULAR VOLUME 92.7 fL (80-100); MEAN PLATELET VOLUME 8.2 fL (7.4-10.4); PLATELET COUNT 202 x10^3/uL (130-400); RED BLOOD COUNT 3.24 x10^6/uL (3.82-5.3); RED CELL DISTRIBUTION WIDTH 15.8 % (9.6-15.2)
[2019-09-10 06:02] LABS: MD YES
[2019-09-10 06:06] LABS: BAND#(MANUAL) 0.11 x10^3/uL; BANDS%(MANUAL) 3 % (0-7); EOS#(MANUAL) 0.04 x10^3/uL (0.0-0.4); EOS% (MANUAL) 1 % (1-7); LYMPH#(MANUAL) 1.26 x10^3/uL (1-3.4); LYMPHS% (MANUAL) 36 % (22-44); MONOS#(MANUAL) 0.56 x10^3/uL (0.3-2.7); MONOS% (MANUAL) 16 % (2-9); REACTIVE LYMPHS # (MANUAL) 0.07 x10^3/uL (0-0); REACTIVE LYMPHS % (MANUAL) 2 % (0-0); SEG#(MANUAL) 1.47 x10^3/uL (1.8-6.8); SEGS% (MANUAL) 42 % (42-75)
[2019-09-10 06:07] LABS: <PLATELET ESTIMATE> ADEQUATE; <PLT MORPHOLOGY> NORMAL PLT MORPH; ANISOCYTOSIS 1+; POLYCHROMASIA 1+
[2019-09-10 06:10] LABS: ECHINOCYTES 1+
[2019-09-10 06:11] LABS: ACANTHOCYTES 1+
[2019-09-10 06:45] VITALS: BP 90/55
[2019-09-10] MEDS: METOPROLOL TARTRATE 50 MG TABLET PO SCH (06:45)
[2019-09-10] MEDS: ASPIRIN 81 MG TABLET EC PO SCH (06:46)
[2019-09-10 07:56] VITALS: BP 90/43
[2019-09-10] MEDS: POLYETHYLENE GLYCOL 17 GM PACKET PO SCH (09:00)
[2019-09-10] MEDS ORDERED: DOCUSATE 100 MG CAPSULE PO SCH (09:00)
[2019-09-10] MEDS ORDERED: LEVOTHYROXINE 25 MCG TABLET PO SCH (09:11)
[2019-09-10 10:00] VITALS: BP 93/55
[2019-09-10] MEDS: APIXABAN 2.5 MG TABLET PO SCH (10:07)
[2019-09-10] MEDS: LACTOBACILLUS CHEW TABLET PO SCH (10:07)
[2019-09-10] MEDS: GABAPENTIN 300 MG CAPSULE PO SCH (10:07)
[2019-09-10] MEDS: DIGOXIN 0.125 MG TABLET PO SCH (10:08)
[2019-09-10] MEDS: MAGNESIUM OXIDE 400 MG TABLET PO SCH (10:08)
[2019-09-10] MEDS ORDERED: POLY17PO5 PO ×2 (12:26)
[2019-09-10] MEDS ORDERED: DOCU100C33 PO ×2 (12:26)
[2019-09-10] MEDS ORDERED: MAGN400O7 PO ×2 (12:27)
== END 2019-09-10 14:53 | disposition home or self-care (01) ==
LOC: ED 15:43 → SUATTDRO 17:06 → EDIP 17:08 → INTOOBSV 17:08 → 5SO 18:25 → DCLOUNGE 09-10 14:35
PROVIDERS: ADMIT Hospitalist; ATTEND Internal Medicine
DX: I48.20 Chronic atrial fibrillation, unspecified (principal); K56.41 Fecal impaction; N18.3 Chronic kidney disease, stage 3 (moderate); N20.0 Calculus of kidney; E87.6 Hypokalemia; D49.4 Neoplasm of unspecified behavior of bladder; E03.9 Hypothyroidism, unspecified; I25.10 Atherosclerotic heart disease of native coronary artery without angina pectoris; E78.5 Hyperlipidemia, unspecified; I73.00 Raynaud's syndrome without gangrene; I25.2 Old myocardial infarction; M32.9 Systemic lupus erythematosus, unspecified; D64.9 Anemia, unspecified; R19.7 Diarrhea, unspecified; Z79.01 Long term (current) use of anticoagulants; Z79.82 Long term (current) use of aspirin; Z79.899 Other long term (current) drug therapy
CPT/HCPCS: 36415; 71045; 74018; 80048; 80053; 80162; 83735; 84100; 84443; 84484; 85025; 86140; 87324; 89055; 93005; 96365; 96366; 96375; 97162; 97165; 99284; G0378; J3480; J7030; J7040; 96374; 99285

== ENCOUNTER 2019-09-16 11:30 | Inpatient (IN) | payer MEDICARE, OTHER ==
[~2019-09-16] VITALS: Ht 175.3 cm; Wt 59.9 kg
[~2019-09-16 11:30] MED LIST changes: -DIGO125T PO; +DIGO125T85 PO; +MAGN400O7 PO
--- NOTE | 2019-09-16 11:55 | NUR ---
PT BIB BY KENYA. providers at bedside discussing POC. pt placed on special contact ISO and discussed need for Stool sample. pt placed in gown, all personal belongings bagged. home medication list updated. Call light within reach. pt denies additional needs at this time.
[2019-09-16] MEDS ORDERED: SODIUM CHLORIDE FLUSH 10ML SYR IVF ONE (12:00)
[2019-09-16] MEDS ORDERED: SODIUM CHLORIDE 0.9% 1,000ML IVBOLUS ONE (12:00)
--- NOTE | 2019-09-16 12:15 | NUR ---
attempted to start IVs x2 without sucess. Additional RN attempted x2 to place IV without sucess. pt tolerating procedures well. Additional RN to attempt IV placement.
[2019-09-16 12:59] LABS: MEAN CORPUSCULAR HEMOGLOBIN 29.9 pg (27.0-34.8); MEAN CORPUSCULAR HGB CONC 32.5 g/dL (32.4-35.8); MEAN CORPUSCULAR VOLUME 92.2 fL (80-100); MEAN PLATELET VOLUME 7.7 fL (7.4-10.4); PLATELET COUNT 270 x10^3/uL (130-400); RED BLOOD COUNT 3.76 x10^6/uL (3.82-5.3); RED CELL DISTRIBUTION WIDTH 15.7 % (9.6-15.2)
[2019-09-16 13:10] LABS: ALANINE AMINOTRANSFERASE 15 U/L (12-78); ALBUMIN 3.1 g/dL (3.4-5.0); ANION GAP 10 mmol/L (5-15); CALCIUM 8.2 mg/dL (8.5-10.1); CHLORIDE 111 mmol/L (98-107); CREATININE 1.16 mg/dL (0.55-1.02)
--- NOTE | 2019-09-16 13:13 | NUR ---
piv est by bc khan. ns infusing at this time. pt tolerated well.
[2019-09-16 13:24] LABS: ALKALINE PHOSPHATASE 89 U/L (45-117); BILIRUBIN,TOTAL 0.4 mg/dL (0.2-1.0); TOTAL PROTEIN 6.3 g/dL (6.4-8.2)
--- NOTE | 2019-09-16 13:26 | NUR ---
LUNCH RN: PT SLEEPING IN BED, EASILY AROUSED. NADN. VSS. PORTER TO BEDSIDE TO DISCUSS POC WITH PT.
[2019-09-16 13:29] LABS: MD YES
[2019-09-16 13:31] LABS: ANISOCYTOSIS 1+; BAND#(MANUAL) 0.46 x10^3/uL; BANDS%(MANUAL) 6 % (0-7); BASOS#(MANUAL) 0.08 x10^3/uL (0-0.1); BASOS% (MANUAL) 1 % (0-1); ECHINOCYTES 1+; LYMPH#(MANUAL) 1.29 x10^3/uL (1-3.4); LYMPHS% (MANUAL) 17 % (22-44); METAMYELOCYTES# (MANUAL) 0.08 x10^3/uL (0-0); METAMYELOCYTES% (MANUAL) 1 % (0-1); MONOS#(MANUAL) 0.38 x10^3/uL (0.3-2.7); MONOS% (MANUAL) 5 % (2-9); POLYCHROMASIA 1+; SEG#(MANUAL) 5.32 x10^3/uL (1.8-6.8); SEGS% (MANUAL) 70 % (42-75)
[2019-09-16 13:32] LABS: <PLATELET ESTIMATE> ADEQUATE; <PLT MORPHOLOGY> NORMAL PLT MORPH
[2019-09-16] MEDS ORDERED: POTASSIUM CHLORIDE 20 MEQ TAB.ER.PRT PO ONE (14:00)
[2019-09-16] MEDS ORDERED: POTASSIUM CHLORIDE 40 MEQ in SODIUM CHLORIDE 0.9% 500 ML IV ONE (14:00)
[2019-09-16] MEDS ORDERED: POTASSIUM CHLORIDE 20 MEQ TAB.ER.PRT ONE (14:08)
[2019-09-16] MEDS ORDERED: SODIUM CHLORIDE 0.9% 1,000 ML IV SCH (14:13)
--- NOTE | 2019-09-16 14:15 | NUR ---
Potassium infusing. Hospitalist at bedside evulating pt. Discussed current POC with pt, pt agreeable. denies additional needs at this time
[2019-09-16] MEDS ORDERED: ACETAMINOPHEN 325 MG TABLET PO PRN (14:30)
[2019-09-16] MEDS ORDERED: ONDANSETRON 2MG/ML, 2ML IVPush PRN (14:30)
--- NOTE | 2019-09-16 14:43 | NUR ---
Report given to Maureen. pt to transfer to room 420.
[2019-09-16 15:22] VITALS: BP 108/56
[2019-09-16] MEDS: GABAPENTIN 300 MG CAPSULE PO SCH ×2 (17:42→21:16)
[2019-09-16] MEDS ORDERED: OMNIPAQUE 350 MG/ML, 100ML BOTTLE ONE (19:42)
[2019-09-16 19:48] VITALS: BP 105/61
[2019-09-16 21:05] LABS: CLOSTRIDIUM DIFFICILE ANTIGEN NEGATIVE; CLOSTRIDIUM DIFFICILE TOXIN NEGATIVE (Negative)
[2019-09-16] MEDS: APIXABAN 2.5 MG TABLET PO SCH (21:16)
[2019-09-16] MEDS: ATORVASTATIN 40 MG TABLET PO SCH (21:16)
[2019-09-17 01:27] VITALS: BP 102/60
[2019-09-17] MEDS: ASPIRIN 81 MG TABLET EC PO SCH (05:31)
[2019-09-17 05:54] LABS: BASOPHILS # (AUTO) 0.03 x10^3/uL (0-0.1); BASOPHILS % (AUTO) 1 % (0-1); EOSINOPHILS # (AUTO) 0.06 x10^3/uL (0-0.4); EOSINOPHILS % (AUTO) 1 % (1-7); LYMPHOCYTES # (AUTO) 1.59 x10^3/uL (1-3.4); LYMPHOCYTES % (AUTO) 37 % (22-44); MD NO; MEAN CORPUSCULAR HEMOGLOBIN 30.1 pg (27.0-34.8); MEAN CORPUSCULAR HGB CONC 32.7 g/dL (32.4-35.8); MEAN CORPUSCULAR VOLUME 92.2 fL (80-100); MEAN PLATELET VOLUME 7.8 fL (7.4-10.4); MONOCYTES % (AUTO) 18 % (2-9); NEUTROPHILS # (AUTO) 1.88 x10^3/uL (1.8-6.8); NEUTROPHILS % (AUTO) 43 % (42-75); PLATELET COUNT 237 x10^3/uL (130-400); RED BLOOD COUNT 3.22 x10^6/uL (3.82-5.3); RED CELL DISTRIBUTION WIDTH 15.8 % (9.6-15.2)
[2019-09-17 06:01] LABS: ANION GAP 7 mmol/L (5-15); CALCIUM 7.8 mg/dL (8.5-10.1); CHLORIDE 116 mmol/L (98-107)
[2019-09-17 06:03] LABS: CREATININE 0.91 mg/dL (0.55-1.02)
[2019-09-17 06:20] VITALS: BP 94/55
[2019-09-17] MEDS ORDERED: POTASSIUM CHLORIDE 40 MEQ in SODIUM CHLORIDE 0.9% 500 ML IV ONE (07:00)
[2019-09-17] MEDS: LEVOTHYROXINE 25 MCG TABLET PO SCH (07:42)
[2019-09-17] MEDS: GABAPENTIN 300 MG CAPSULE PO SCH ×3 (07:43→20:17)
[2019-09-17] MEDS: APIXABAN 2.5 MG TABLET PO SCH ×2 (07:43→20:17)
[2019-09-17] MEDS: METOPROLOL SUCCINATE 50 MG TAB.ER.24H PO SCH (09:00)
[2019-09-17] MEDS: DIGOXIN 0.125 MG TABLET PO SCH (09:08)
[2019-09-17 09:51] LABS: CRYPTOSPORIDIUM ANTIGEN Negative (Negative)
[2019-09-17] MEDS ORDERED: POTASSIUM CHLORIDE 20 MEQ TAB.ER.PRT PO ONE (11:00)
[2019-09-17 15:06] VITALS: BP 102/61
[2019-09-17] MEDS ORDERED: POTASSIUM CHLORIDE 10% 40 MEQ/30 ML UDC PO ONE (16:30)
[2019-09-17] MEDS: ATORVASTATIN 40 MG TABLET PO SCH (20:17)
[2019-09-17 20:28] VITALS: BP 141/56
[2019-09-18 02:18] VITALS: BP 102/60
[2019-09-18] MEDS: ASPIRIN 81 MG TABLET EC PO SCH (05:19)
[2019-09-18 06:20] LABS: BASOPHILS # (AUTO) 0.02 x10^3/uL (0-0.1); BASOPHILS % (AUTO) 1 % (0-1); EOSINOPHILS # (AUTO) 0.06 x10^3/uL (0-0.4); EOSINOPHILS % (AUTO) 1 % (1-7); LYMPHOCYTES % (AUTO) 34 % (22-44); MD NO; MEAN CORPUSCULAR HEMOGLOBIN 29.8 pg (27.0-34.8); MEAN CORPUSCULAR HGB CONC 32.4 g/dL (32.4-35.8); MEAN PLATELET VOLUME 7.6 fL (7.4-10.4); MONOCYTES % (AUTO) 13 % (2-9); NEUTROPHILS # (AUTO) 2.38 x10^3/uL (1.8-6.8); NEUTROPHILS % (AUTO) 51 % (42-75); PLATELET COUNT 234 x10^3/uL (130-400); RED BLOOD COUNT 3.32 x10^6/uL (3.82-5.3); RED CELL DISTRIBUTION WIDTH 15.8 % (9.6-15.2)
[2019-09-18 06:36] LABS: ALBUMIN 2.5 g/dL (3.4-5.0); ANION GAP 6 mmol/L (5-15); CALCIUM 7.7 mg/dL (8.5-10.1); CHLORIDE 117 mmol/L (98-107)
[2019-09-18 06:41] LABS: ALANINE AMINOTRANSFERASE 9 U/L (12-78); ALKALINE PHOSPHATASE 79 U/L (45-117); BILIRUBIN,TOTAL 0.4 mg/dL (0.2-1.0); CREATININE 1.05 mg/dL (0.55-1.02); TOTAL PROTEIN 5.1 g/dL (6.4-8.2)
[2019-09-18 07:05] VITALS: BP 124/63
[2019-09-18] MEDS: GABAPENTIN 300 MG CAPSULE PO SCH ×3 (09:11→21:24)
[2019-09-18] MEDS: LEVOTHYROXINE 25 MCG TABLET PO SCH (09:11)
[2019-09-18] MEDS: METOPROLOL SUCCINATE 50 MG TAB.ER.24H PO SCH (09:11)
[2019-09-18] MEDS: NEUTRA PHOS K 250 MG TABLET PO SCH ×2 (09:11→21:24)
[2019-09-18] MEDS: APIXABAN 2.5 MG TABLET PO SCH ×2 (09:11→21:24)
[2019-09-18] MEDS: DIGOXIN 0.125 MG TABLET PO SCH (09:12)
[2019-09-18 13:36] VITALS: BP 105/61
[2019-09-18] MEDS ORDERED: GOLYTELY 4,000ML ORAL.SOL PO ONE (15:00)
[2019-09-18 19:53] VITALS: BP 108/68
[2019-09-18] MEDS: ATORVASTATIN 40 MG TABLET PO SCH (21:24)
[2019-09-19 01:06] VITALS: BP 100/61
[2019-09-19] MEDS: ASPIRIN 81 MG TABLET EC PO SCH (05:57)
[2019-09-19 06:38] LABS: BASOPHILS # (AUTO) 0.03 x10^3/uL (0-0.1); BASOPHILS % (AUTO) 1 % (0-1); EOSINOPHILS # (AUTO) 0.05 x10^3/uL (0-0.4); EOSINOPHILS % (AUTO) 1 % (1-7); LYMPHOCYTES # (AUTO) 1.81 x10^3/uL (1-3.4); LYMPHOCYTES % (AUTO) 34 % (22-44); MD NO; MEAN CORPUSCULAR HEMOGLOBIN 29.5 pg (27.0-34.8); MEAN CORPUSCULAR HGB CONC 32.3 g/dL (32.4-35.8); MEAN CORPUSCULAR VOLUME 91.4 fL (80-100); MEAN PLATELET VOLUME 7.5 fL (7.4-10.4); MONOCYTES # (AUTO) 0.71 x10^3/uL (0.2-0.8); MONOCYTES % (AUTO) 13 % (2-9); NEUTROPHILS % (AUTO) 52 % (42-75); PLATELET COUNT 255 x10^3/uL (130-400); RED BLOOD COUNT 3.94 x10^6/uL (3.82-5.3); RED CELL DISTRIBUTION WIDTH 15.9 % (9.6-15.2)
[2019-09-19 06:45] VITALS: BP 138/78
[2019-09-19 06:45] LABS: ANION GAP 7 mmol/L (5-15); CALCIUM 8.2 mg/dL (8.5-10.1); CHLORIDE 117 mmol/L (98-107); CREATININE 0.93 mg/dL (0.55-1.02)
[2019-09-19] MEDS ORDERED: POTASSIUM CHLORIDE 40 MEQ in SODIUM CHLORIDE 0.9% 500 ML IV ONE (08:00)
[2019-09-19] MEDS: APIXABAN 2.5 MG TABLET PO SCH ×2 (08:52→21:09)
[2019-09-19] MEDS: LEVOTHYROXINE 25 MCG TABLET PO SCH (08:53)
[2019-09-19] MEDS: NEUTRA PHOS K 250 MG TABLET PO SCH ×2 (08:53→21:09)
[2019-09-19] MEDS: METOPROLOL SUCCINATE 50 MG TAB.ER.24H PO SCH (08:53)
[2019-09-19] MEDS: GABAPENTIN 300 MG CAPSULE PO SCH ×3 (08:53→21:09)
[2019-09-19] MEDS: DIGOXIN 0.125 MG TABLET PO SCH (08:53)
[2019-09-19] MEDS ORDERED: MEPERIDINE/PF 25MG/ML,1ML IVPush PRN (12:00)
[2019-09-19] MEDS ORDERED: LABETALOL 5MG/ML, 20ML IV PRN (12:00)
[2019-09-19] MEDS ORDERED: ACETAMINOPHEN 325 MG TABLET PO PRN ×2 (12:00→14:30)
[2019-09-19] MEDS ORDERED: FENTANYL PF 100 MCG/2ML IV PRN ×2 (12:00→14:30)
[2019-09-19] MEDS ORDERED: hydrALAzine 20 MG/ML, 1ML IV PRN (12:00)
[2019-09-19] MEDS ORDERED: ONDANSETRON 2MG/ML, 2ML IV PRN (12:00)
[2019-09-19] MEDS ORDERED: EPHEDRINE 50 MG/ML, 1ML IVPush PRN (12:00)
[2019-09-19] MEDS ORDERED: PROMETHAZINE 25 MG/ML, 1ML IV PRN (12:00)
[2019-09-19] MEDS ORDERED: OXYcodone 5 MG/5 ML ORAL.SOL UDC PO PRN ×2 (12:00→14:30)
[2019-09-19] MEDS ORDERED: HYDROmorphone 2 MG/ML, 1ML IVPush PRN (12:00)
[2019-09-19] MEDS ORDERED: PROPOFOL 50 ML ONE ×2 (12:16→14:27)
[2019-09-19 13:01] VITALS: BP 116/59
[2019-09-19 20:04] VITALS: BP 96/56
[2019-09-19] MEDS: ATORVASTATIN 40 MG TABLET PO SCH (21:09)
[2019-09-20 00:09] VITALS: BP 126/63
[2019-09-20 05:26] LABS: BASOPHILS # (AUTO) 0.04 x10^3/uL (0-0.1); BASOPHILS % (AUTO) 1 % (0-1); EOSINOPHILS # (AUTO) 0.05 x10^3/uL (0-0.4); EOSINOPHILS % (AUTO) 1 % (1-7); LYMPHOCYTES # (AUTO) 1.54 x10^3/uL (1-3.4); LYMPHOCYTES % (AUTO) 27 % (22-44); MD NO; MEAN CORPUSCULAR HEMOGLOBIN 29.8 pg (27.0-34.8); MEAN CORPUSCULAR HGB CONC 32.3 g/dL (32.4-35.8); MEAN CORPUSCULAR VOLUME 92.3 fL (80-100); MEAN PLATELET VOLUME 7.4 fL (7.4-10.4); MONOCYTES # (AUTO) 0.66 x10^3/uL (0.2-0.8); MONOCYTES % (AUTO) 12 % (2-9); NEUTROPHILS # (AUTO) 3.41 x10^3/uL (1.8-6.8); NEUTROPHILS % (AUTO) 60 % (42-75); PLATELET COUNT 215 x10^3/uL (130-400); RED BLOOD COUNT 3.44 x10^6/uL (3.82-5.3); RED CELL DISTRIBUTION WIDTH 16.1 % (9.6-15.2)
[2019-09-20 05:38] LABS: CHLORIDE 119 mmol/L (98-107)
[2019-09-20 05:43] LABS: ANION GAP 8 mmol/L (5-15); CALCIUM 7.9 mg/dL (8.5-10.1); CREATININE 0.83 mg/dL (0.55-1.02)
[2019-09-20] MEDS: ASPIRIN 81 MG TABLET EC PO SCH (05:53)
[2019-09-20 07:25] VITALS: BP 147/76
[2019-09-20] MEDS ORDERED: POTASSIUM CHLORIDE 20 MEQ TAB.ER.PRT PO ONE (08:00)
[2019-09-20] MEDS: GABAPENTIN 300 MG CAPSULE PO SCH (08:45)
[2019-09-20] MEDS: DIGOXIN 0.125 MG TABLET PO SCH (08:45)
[2019-09-20] MEDS: APIXABAN 2.5 MG TABLET PO SCH (08:45)
[2019-09-20] MEDS: METOPROLOL SUCCINATE 50 MG TAB.ER.24H PO SCH (08:46)
[2019-09-20] MEDS: NEUTRA PHOS K 250 MG TABLET PO SCH (08:46)
[2019-09-20] MEDS: LEVOTHYROXINE 25 MCG TABLET PO SCH (08:46)
[2019-09-20 10:19] LABS: HCT (SEDRATE) 35.1 % (34.6-47.8)
[2019-09-20 13:45] VITALS: BP 109/51
[2019-09-21] MEDS ORDERED: SULF1TAB24 PO (17:23)
== END 2019-09-20 15:33 | disposition home health service (06) | DRG 391 ==
LOC: ED 14:03 → EDIP 14:13 → 4WST 15:13 → DCLOUNGE 09-20 15:15
PROVIDERS: ADMIT Internal Medicine Infectious Disease; ATTEND Internal Medicine
PROC: 0DBN8ZX Excision of Sigmoid Colon, Via Natural or Artificial Opening Endoscopic, Diagnostic (ICD-10-PCS; principal; 2019-09-19 14:30)
DX: R19.7 Diarrhea, unspecified (principal); E43 Unspecified severe protein-calorie malnutrition; I48.20 Chronic atrial fibrillation, unspecified; D68.69 Other thrombophilia; A07.2 Cryptosporidiosis; K57.30 Diverticulosis of large intestine without perforation or abscess without bleeding; E86.0 Dehydration; I73.00 Raynaud's syndrome without gangrene; E87.6 Hypokalemia; N18.3 Chronic kidney disease, stage 3 (moderate); I25.10 Atherosclerotic heart disease of native coronary artery without angina pectoris; D64.9 Anemia, unspecified; I95.9 Hypotension, unspecified; K52.839 Microscopic colitis, unspecified; I73.9 Peripheral vascular disease, unspecified; K59.00 Constipation, unspecified; E03.9 Hypothyroidism, unspecified; E78.5 Hyperlipidemia, unspecified; L03.039 Cellulitis of unspecified toe; Z79.01 Long term (current) use of anticoagulants; Z80.1 Family history of malignant neoplasm of trachea, bronchus and lung; Z87.891 Personal history of nicotine dependence; Z90.49 Acquired absence of other specified parts of digestive tract; Z90.710 Acquired absence of both cervix and uterus; Z95.0 Presence of cardiac pacemaker; Z79.899 Other long term (current) drug therapy
CPT/HCPCS: 36415; 74018; 74177; 80048; 80053; 80162; 82784; 83516; 83690; 83735; 84100; 84132; 85025; 85651; 86140; 87046; 87252; 87324; 87328; 87329; 87427; 88305; 89055; 93005; 96360; 99285; G0378; J2704; J3480; Q9967; J7030; J7040

== ENCOUNTER 2019-09-30 06:49 | Emergency (ER) | payer MEDICARE, OTHER ==
[~2019-09-30] VITALS: Ht 175.3 cm; Wt 58.6 kg
[~2019-09-30 06:49] MED LIST changes: +SULF1TAB24 PO
[2019-09-30 07:45] LABS: BASOPHILS # (AUTO) 0.03 x10^3/uL (0-0.1); BASOPHILS % (AUTO) 1 % (0-1); EOSINOPHILS # (AUTO) 0.03 x10^3/uL (0-0.4); EOSINOPHILS % (AUTO) 1 % (1-7); LYMPHOCYTES # (AUTO) 1.32 x10^3/uL (1-3.4); LYMPHOCYTES % (AUTO) 28 % (22-44); MD NO; MEAN CORPUSCULAR HEMOGLOBIN 29.8 pg (27.0-34.8); MEAN CORPUSCULAR HGB CONC 32.3 g/dL (32.4-35.8); MEAN CORPUSCULAR VOLUME 92.3 fL (80-100); MEAN PLATELET VOLUME 7.7 fL (7.4-10.4); MONOCYTES # (AUTO) 0.86 x10^3/uL (0.2-0.8); MONOCYTES % (AUTO) 18 % (2-9); NEUTROPHILS # (AUTO) 2.56 x10^3/uL (1.8-6.8); NEUTROPHILS % (AUTO) 53 % (42-75); PLATELET COUNT 228 x10^3/uL (130-400); RED BLOOD COUNT 3.37 x10^6/uL (3.82-5.3); RED CELL DISTRIBUTION WIDTH 17.2 % (9.6-15.2)
[2019-09-30 07:51] LABS: ALBUMIN 3.1 g/dL (3.4-5.0); ANION GAP 6 mmol/L (5-15); CALCIUM 8.3 mg/dL (8.5-10.1); CHLORIDE 114 mmol/L (98-107)
[2019-09-30 07:57] LABS: ALANINE AMINOTRANSFERASE 12 U/L (12-78); ALKALINE PHOSPHATASE 86 U/L (45-117); BILIRUBIN,TOTAL 0.6 mg/dL (0.2-1.0); CREATININE 1.37 mg/dL (0.55-1.02)
[2019-09-30 09:23] LABS: MICROSCOPIC NOT IND
[2019-09-30 09:52] LABS: CULTURE INDICATED? NO
--- NOTE | 2019-09-30 11:21 | NUR ---
PT UP TO BR ATTEMPTING TO PROVIDE A STOOL
--- NOTE | 2019-09-30 11:39 | NUR ---
PT PROVIDED A STOOL SAMPLE HOWEVER URINATED IN THE SAMPLE TAKEN TO LAB THEY DELINED TO RUN FOR RESULTS
[2019-09-30 12:17] VITALS: BP 107/40
== END 2019-09-30 13:48 | disposition home or self-care (01) ==
LOC: ED 08:11
DX: R19.7 Diarrhea, unspecified (principal); I48.20 Chronic atrial fibrillation, unspecified; N28.9 Disorder of kidney and ureter, unspecified; R60.0 Localized edema; R00.0 Tachycardia, unspecified; I25.2 Old myocardial infarction; Z90.89 Acquired absence of other organs; Z90.49 Acquired absence of other specified parts of digestive tract; Z90.710 Acquired absence of both cervix and uterus
CPT/HCPCS: 36415; 74022; 80053; 80162; 81003; 83880; 85025; 93005; 99284

== ENCOUNTER → 2019-10-19 | Outpatient (CLI) | payer MEDICARE, OTHER | END | disposition home or self-care (01) | LOC: WOUND 08:41 | PROVIDERS: ATTEND Family Medicine | DX: I70.235 Atherosclerosis of native arteries of right leg with ulceration of other part of foot (principal); L97.512 Non-pressure chronic ulcer of other part of right foot with fat layer exposed; I73.01 Raynaud's syndrome with gangrene; L93.0 Discoid lupus erythematosus; I48.91 Unspecified atrial fibrillation; K21.9 Gastro-esophageal reflux disease without esophagitis; M81.0 Age-related osteoporosis without current pathological fracture; E03.9 Hypothyroidism, unspecified; Z95.0 Presence of cardiac pacemaker; Z87.891 Personal history of nicotine dependence | CPT/HCPCS: 11042; G0463 ==

== ENCOUNTER 2019-10-26 09:08 | Outpatient (CLI) | payer MEDICARE, OTHER | END 2019-10-26 23:59 | disposition home or self-care (01) | LOC: WOUND 09:08 | PROVIDERS: ATTEND Family Medicine | DX: I70.235 Atherosclerosis of native arteries of right leg with ulceration of other part of foot (principal); L97.512 Non-pressure chronic ulcer of other part of right foot with fat layer exposed; I73.01 Raynaud's syndrome with gangrene; L93.0 Discoid lupus erythematosus; I48.91 Unspecified atrial fibrillation; K21.9 Gastro-esophageal reflux disease without esophagitis; M81.0 Age-related osteoporosis without current pathological fracture; E03.9 Hypothyroidism, unspecified; Z95.0 Presence of cardiac pacemaker; Z87.891 Personal history of nicotine dependence | CPT/HCPCS: 11042 ==

== ENCOUNTER 2019-11-12 09:07 | Emergency (ER) | payer MEDICARE, OTHER ==
[~2019-11-12] VITALS: Ht 175.3 cm; Wt 53.9 kg
--- NOTE | 2019-11-12 09:39 | NUR ---
[facility] WITH OWN WALKER. 84 Y/O F PRESENTS STATING "MY RIGHT TOE IS SO PAINFUL AFTER HAVING THE TOE NAIL REMOVED, IT'S WAKING ME UP FROM SLEEP AND IT HURTS, I TOOK A TYLENOL FOR IT THIS MORNING AND MY CEPHALEXIN TOO, MY LEGS HAVE BEEN SWELLING FOR SEVERAL WEEKS AND I JUST HAD A PACEMAKER PLACED ABOUT 2 WEEKS AGO WITH MY A-FIB. AND I HAVE HAD DIARRHEA SINCE AUGUST BUT IT'S GETTING BETTER." PT DENIES ANY CP, SOB, COUGH, FEVERS, CHILLS, LEMA, N/V, ABD PAIN. RATES PAIN 10/10 IN RIGHT GREAT TOE. CONT PULSE OX, BP, CARDIAC MONITORS APPLIED. A-FIB ON MONITOR. VSS. DIANA CAM AT BEDSIDE FOR EVALUATION, AWAITING ORDERS. UNABLE TO PALPATE PEDAL PULSE, DIANA CAM AWARE, TO DOPPLER PULSES. CALL LIGHT IN REACH. FALL PRECAUTIONS IN PLACE. SIDE RAILS UPX2. A&OX4.
[2019-11-12] MEDS ORDERED: FURO20TA3 PO (09:47)
[2019-11-12] MEDS ORDERED: MELA5TAB14 PO (09:47)
[2019-11-12] MEDS ORDERED: CEPH-368 PO (09:47)
[2019-11-12] MEDS ORDERED: POTA10CA PO (09:47)
--- NOTE | 2019-11-12 09:59 | NUR ---
DR. ORTIZ AT BEDSIDE FOR EVALUATION. DOPPLER PULSES VERY FAINT/WEAK, SKIN PWD, DELAYED CAP REFILL. PT WITH HX OF RAYNAUD'S DISEASE. DISCUSSED PEDAL ASSESSMENT WITH DR. ORTIZ AT BEDSIDE, AWARE, NO NEW ORDERS RECEIVED.
[2019-11-12] MEDS ORDERED: OXYcodone/APAP 5/325MG TABLET PO ONE (10:00)
[2019-11-12] MEDS ORDERED: METOPROLOL TARTRATE 25 MG TAB PO ONE (10:00)
[2019-11-12] MEDS ORDERED: METOPROLOL TARTRATE 25 MG TAB ONE (10:14)
[2019-11-12] MEDS ORDERED: GABAPENTIN 300 MG CAPSULE ONE (10:14)
--- NOTE | 2019-11-12 10:17 | NUR ---
PT MEDICATED NOTED IN EMAR PER MD FOR RIGHT TOE PAIN AND FOR A-FIB, PT DID NOT TAKE MEDICATIONS YET THIS AM. VSS. A-FIB ON MONITOR. DENIES NEED TO USE RESTROOM. CALL LIGHT IN REACH. FALL PRECAUTIONS IN PLACE.
[2019-11-12 10:23] LABS: BASOPHILS # (AUTO) 0.01 x10^3/uL (0-0.1); BASOPHILS % (AUTO) 0 % (0-1); EOSINOPHILS # (AUTO) 0.05 x10^3/uL (0-0.4); EOSINOPHILS % (AUTO) 1 % (1-7); LYMPHOCYTES # (AUTO) 1.12 x10^3/uL (1-3.4); LYMPHOCYTES % (AUTO) 18 % (22-44); MD NO; MEAN CORPUSCULAR HEMOGLOBIN 30.5 pg (27.0-34.8); MEAN CORPUSCULAR HGB CONC 32.7 g/dL (32.4-35.8); MEAN CORPUSCULAR VOLUME 93.5 fL (80-100); MONOCYTES # (AUTO) 0.56 x10^3/uL (0.2-0.8); MONOCYTES % (AUTO) 9 % (2-9); NEUTROPHILS # (AUTO) 4.59 x10^3/uL (1.8-6.8); NEUTROPHILS % (AUTO) 72 % (42-75); PLATELET COUNT 227 x10^3/uL (130-400); RED BLOOD COUNT 3.83 x10^6/uL (3.82-5.3); RED CELL DISTRIBUTION WIDTH 19.5 % (9.6-15.2)
--- NOTE | 2019-11-12 10:29 | NUR ---
CLEMENTE Manuel AT BEDSIDE TO CLEANSE AND DRESS WOUND PER DR. ORTIZ
[2019-11-12 10:30] LABS: ALBUMIN 3.8 g/dL (3.4-5.0); ANION GAP 9 mmol/L (5-15); CALCIUM 9.1 mg/dL (8.5-10.1); CHLORIDE 113 mmol/L (98-107); CREATININE 1.16 mg/dL (0.55-1.02)
[2019-11-12] MEDS ORDERED: GABAPENTIN 300 MG CAPSULE PO ONE (10:30)
--- NOTE | 2019-11-12 11:22 | NUR ---
PT CALLED RN TO ROOM, REPORTS "PAIN WAS FEELING BETTER IN MY TOE BUT IT SEEMS TO BE INCREASING, DRESSING ASSESSED, REMOVED AND REPLACED WITH NEW LOOSENED DRESSING, CDI. PT REPORTS PAIN IMPROVED. VSS. CALL LIGHT IN REACH. FALL PRECUATIONS IN PLACE. DENIES NEED TO USE RESTROOM. AWAITING RECHECK FROM [facility]
--- NOTE | 2019-11-12 12:05 | NUR ---
DIANA CAM AND DR ORTIZ TO BEDSIDE FOR RECHECK, DISCUSSING DISCARHGE POC WITH PT AND WOUND CARE, PT VERBALIZED UNDERSTANDING. AWAITING CHART AND DISCHARGE PAPERS FROM [facility]
--- NOTE | 2019-11-12 12:24 | NUR ---
[facility] RN AT BEDSIDE TO ASSIST WITH PT DISCHARGE PER DR. ORTIZ, PROVIDING PT TAXI [facility]OUCHER HOME PER REQUEST AND MD ACOSTA
[2019-11-12 12:30] VITALS: BP 138/48
== END 2019-11-12 12:32 | disposition home or self-care (01) ==
LOC: ED 09:55
DX: I70.238 Atherosclerosis of native arteries of right leg with ulceration of other part of lower leg (principal); I70.248 Atherosclerosis of native arteries of left leg with ulceration of other part of lower leg; I70.25 Atherosclerosis of native arteries of other extremities with ulceration; L97.829 Non-pressure chronic ulcer of other part of left lower leg with unspecified severity; I48.0 Paroxysmal atrial fibrillation; I25.2 Old myocardial infarction; Z86.39 Personal history of other endocrine, nutritional and metabolic disease
CPT/HCPCS: 36415; 80048; 82040; 85025; 93005; 99285

== ENCOUNTER 2019-11-22 11:38 | Emergency (ER) | payer MEDICARE, OTHER ==
[~2019-11-22] VITALS: Ht 175.3 cm; Wt 56.6 kg
[2019-11-22 11:43] VITALS: BP 108/72
[2019-11-22] MEDS ORDERED: HYDROcodone/APAP 5/325 TABLET ONE (12:20)
--- NOTE | 2019-11-22 12:23 | NUR ---
TASK RN: PT MEDICATED FOR 4/10 RIGHT TOE PAIN.
[2019-11-22] MEDS ORDERED: HYDROcodone/APAP 5/325 TABLET PO ONE (12:30)
[2019-11-22 12:34] LABS: BASOPHILS # (AUTO) 0.02 x10^3/uL (0-0.1); BASOPHILS % (AUTO) 0 % (0-1); EOSINOPHILS # (AUTO) 0.03 x10^3/uL (0-0.4); EOSINOPHILS % (AUTO) 1 % (1-7); LYMPHOCYTES # (AUTO) 1.16 x10^3/uL (1-3.4); LYMPHOCYTES % (AUTO) 20 % (22-44); MD NO; MEAN CORPUSCULAR HEMOGLOBIN 29.9 pg (27.0-34.8); MEAN CORPUSCULAR HGB CONC 32.3 g/dL (32.4-35.8); MEAN CORPUSCULAR VOLUME 92.8 fL (80-100); MEAN PLATELET VOLUME 8.4 fL (7.4-10.4); MONOCYTES # (AUTO) 0.65 x10^3/uL (0.2-0.8); MONOCYTES % (AUTO) 11 % (2-9); NEUTROPHILS # (AUTO) 3.91 x10^3/uL (1.8-6.8); NEUTROPHILS % (AUTO) 68 % (42-75); PLATELET COUNT 223 x10^3/uL (130-400); RED BLOOD COUNT 3.52 x10^6/uL (3.82-5.3); RED CELL DISTRIBUTION WIDTH 18.9 % (9.6-15.2)
[2019-11-22 12:41] LABS: ALBUMIN 3.3 g/dL (3.4-5.0); ANION GAP 6 mmol/L (5-15); CALCIUM 8.7 mg/dL (8.5-10.1); CHLORIDE 111 mmol/L (98-107); CREATININE 0.97 mg/dL (0.55-1.02)
== END 2019-11-22 13:10 | disposition home or self-care (01) ==
LOC: ED 12:02
DX: M79.671 Pain in right foot (principal); I48.91 Unspecified atrial fibrillation; I25.2 Old myocardial infarction
CPT/HCPCS: 36415; 80048; 82040; 85025; 99283

== ENCOUNTER → 2019-11-22 | Outpatient (CLI) | payer MEDICARE, OTHER ==
[~2019-11-22] MED LIST changes: +CEPH-368 PO; +FURO20TA3 PO; +MELA5TAB14 PO; +POTA10CA PO
== END | disposition home or self-care (01) ==
LOC: CVU 08:42
PROVIDERS: ATTEND Family Medicine
DX: M71.22 Synovial cyst of popliteal space [Baker], left knee (principal); I70.203 Unspecified atherosclerosis of native arteries of extremities, bilateral legs; L97.512 Non-pressure chronic ulcer of other part of right foot with fat layer exposed; I70.235 Atherosclerosis of native arteries of right leg with ulceration of other part of foot; I83.93 Asymptomatic varicose veins of bilateral lower extremities; I77.1 Stricture of artery
CPT/HCPCS: 93922; 93925; 93970

== ENCOUNTER → 2019-12-07 | Outpatient (CLI) | payer MEDICARE, OTHER | END | disposition home or self-care (01) | LOC: WOUND 13:10 | PROVIDERS: ATTEND Family Medicine | DX: I70.235 Atherosclerosis of native arteries of right leg with ulceration of other part of foot (principal); L97.512 Non-pressure chronic ulcer of other part of right foot with fat layer exposed; I73.01 Raynaud's syndrome with gangrene; L93.0 Discoid lupus erythematosus; I83.015 Varicose veins of right lower extremity with ulcer other part of foot; I83.92 Asymptomatic varicose veins of left lower extremity; I25.10 Atherosclerotic heart disease of native coronary artery without angina pectoris; I48.91 Unspecified atrial fibrillation; K21.9 Gastro-esophageal reflux disease without esophagitis; M81.0 Age-related osteoporosis without current pathological fracture; E03.9 Hypothyroidism, unspecified; I25.2 Old myocardial infarction; I48.0 Paroxysmal atrial fibrillation; Z79.01 Long term (current) use of anticoagulants; Z79.82 Long term (current) use of aspirin; Z87.891 Personal history of nicotine dependence; Z95.0 Presence of cardiac pacemaker | CPT/HCPCS: 97597 ==

== ENCOUNTER 2019-12-14 13:56 | Outpatient (CLI) | payer MEDICARE, OTHER ==
[2019-12-14] MEDS ORDERED: LEVO50TA5 PO (16:20)
[2019-12-14] MEDS ORDERED: LACT1CAP40 PO (17:33)
== END 2019-12-14 23:59 | disposition home or self-care (01) ==
LOC: WOUND 13:56
PROVIDERS: ATTEND Family Medicine
DX: I70.235 Atherosclerosis of native arteries of right leg with ulceration of other part of foot (principal); L97.512 Non-pressure chronic ulcer of other part of right foot with fat layer exposed; I83.015 Varicose veins of right lower extremity with ulcer other part of foot; I83.92 Asymptomatic varicose veins of left lower extremity; I73.01 Raynaud's syndrome with gangrene; L93.0 Discoid lupus erythematosus; I25.10 Atherosclerotic heart disease of native coronary artery without angina pectoris; K21.9 Gastro-esophageal reflux disease without esophagitis; M81.0 Age-related osteoporosis without current pathological fracture; E03.9 Hypothyroidism, unspecified; I48.91 Unspecified atrial fibrillation; I25.2 Old myocardial infarction; I48.0 Paroxysmal atrial fibrillation; Z87.891 Personal history of nicotine dependence; Z79.82 Long term (current) use of aspirin
CPT/HCPCS: 99214

== ENCOUNTER 2019-12-14 14:38 | Inpatient (IN) | payer MEDICARE, OTHER ==
[~2019-12-14] VITALS: Ht 175.3 cm; Wt 57.7 kg
[2019-12-14 15:43] LABS: BASOPHILS # (AUTO) 0.04 x10^3/uL (0-0.1); BASOPHILS % (AUTO) 1 % (0-1); EOSINOPHILS # (AUTO) 0.01 x10^3/uL (0-0.4); EOSINOPHILS % (AUTO) 0 % (1-7); LYMPHOCYTES # (AUTO) 1.18 x10^3/uL (1-3.4); LYMPHOCYTES % (AUTO) 17 % (22-44); MD NO; MEAN CORPUSCULAR HEMOGLOBIN 29.9 pg (27.0-34.8); MEAN CORPUSCULAR HGB CONC 32.3 g/dL (32.4-35.8); MEAN CORPUSCULAR VOLUME 92.6 fL (80-100); MEAN PLATELET VOLUME 7.7 fL (7.4-10.4); MONOCYTES # (AUTO) 0.84 x10^3/uL (0.2-0.8); MONOCYTES % (AUTO) 12 % (2-9); NEUTROPHILS # (AUTO) 4.99 x10^3/uL (1.8-6.8); NEUTROPHILS % (AUTO) 71 % (42-75); PLATELET COUNT 232 x10^3/uL (130-400); RED BLOOD COUNT 3.43 x10^6/uL (3.82-5.3); RED CELL DISTRIBUTION WIDTH 16.6 % (9.6-15.2)
[2019-12-14 15:50] LABS: ALANINE AMINOTRANSFERASE 13 U/L (12-78); ALBUMIN 3.5 g/dL (3.4-5.0); ANION GAP 7 mmol/L (5-15); CALCIUM 8.8 mg/dL (8.5-10.1); CHLORIDE 103 mmol/L (98-107); CREATININE 1.09 mg/dL (0.55-1.02)
[2019-12-14 15:52] LABS: ALKALINE PHOSPHATASE 102 U/L (45-117); BILIRUBIN,TOTAL 0.4 mg/dL (0.2-1.0); TOTAL PROTEIN 6.9 g/dL (6.4-8.2)
[2019-12-14] MEDS ORDERED: METOPROLOL 1 MG/ML, 5ML IVPush ONE (16:00)
[2019-12-14] MEDS ORDERED: METOPROLOL 1 MG/ML, 5ML ONE (16:03)
--- NOTE | 2019-12-14 16:13 | NUR ---
PT MEDICATED PER EMAR. PT RESTING WITH NO COMPLAINTS.
[2019-12-14] MEDS ORDERED: LEVO50TA5 PO (16:20)
--- NOTE | 2019-12-14 16:22 | NUR ---
DAUGHTER, SHIRA , IS AUTHORIZED BY PATIENT TO RECEIVE INFORMATION.
[2019-12-14] MEDS ORDERED: VANCOMYCIN 1,100 MG in SODIUM CHLORIDE 0.9% 250 ML IV ONE (16:30)
[2019-12-14] MEDS ORDERED: VANCOMYCIN PER PHARMACY MC PRN ×2 (16:30→18:00)
[2019-12-14] MEDS ORDERED: PHARMACOKINETIC CONSULTATION MC ONE ×2 (16:30→18:30)
[2019-12-14 16:41] LABS: HCT (SEDRATE) 32.7 % (34.6-47.8)
--- NOTE | 2019-12-14 16:59 | NUR ---
RACHEAL, JOURNEYMAN MOLDER, CALLED. PATIENT HAS A [facility] PACEMAKER THAT IS MRI COMPATIBLE. HOWEVER, PACEMAKER TECH NEEDS TO BE PRESENT FOR SCAN. RACHEAL TO CALL BACK TO NOTIFY IF MRI WILL BE DONE TODAY OR TUESDAY.
[2019-12-14] MEDS ORDERED: LACT1CAP40 PO (17:33)
--- NOTE | 2019-12-14 17:33 | NUR ---
SBAR TELEPHONE HAND-OFF REPORT GIVEN TO SUNIL SAGASTUME. PT READY TO GO TO HOSPITAL ROOM.
[2019-12-14] MEDS ORDERED: HYDROcodone/APAP 5/325 TABLET ONE (17:54)
[2019-12-14] MEDS ORDERED: HYDROcodone/APAP 5/325 TABLET PO ONE (18:00)
[2019-12-14 18:13] VITALS: BP 91/60
[2019-12-14] MEDS ORDERED: ERGOCALCIFEROL 50,000 UNIT CAPSULE PO SCH (18:30)
[2019-12-14] MEDS ORDERED: POLYETHYLENE GLYCOL 17 GM PACKET PO PRN (18:30)
[2019-12-14] MEDS ORDERED: BISACODYL 10 MG SUPP PR PRN (18:30)
[2019-12-14] MEDS ORDERED: ONDANSETRON ODT 4 MG PO PRN (18:30)
[2019-12-14] MEDS ORDERED: PHARMACOKINETIC MONITORING MC PRN (18:30)
[2019-12-14 19:27] VITALS: BP 98/62
[2019-12-14] MEDS: GABAPENTIN 300 MG CAPSULE PO SCH (20:24)
[2019-12-14] MEDS: ATORVASTATIN 40 MG TABLET PO SCH (20:24)
[2019-12-14] MEDS: PIPERACILLIN/TAZO/PMX 3.375GM 50 ML IV SCH (20:25)
[2019-12-14] MEDS: OXYcodone IR 5MG TABLET PO PRN (20:38)
[2019-12-14] MEDS: SODIUM CHLORIDE FLUSH 10ML SYR IVF SCH (21:00)
[2019-12-14] MEDS ORDERED: APIXABAN 2.5 MG TABLET PO SCH (21:00)
[2019-12-15 00:19] VITALS: BP 123/68
[2019-12-15] MEDS: OXYcodone IR 5MG TABLET PO PRN ×2 (00:46→20:10)
[2019-12-15] MEDS: PIPERACILLIN/TAZO/PMX 3.375GM 50 ML IV SCH ×4 (04:13→20:10)
[2019-12-15 04:52] LABS: BASOPHILS # (AUTO) 0.04 x10^3/uL (0-0.1); BASOPHILS % (AUTO) 1 % (0-1); EOSINOPHILS # (AUTO) 0.06 x10^3/uL (0-0.4); EOSINOPHILS % (AUTO) 1 % (1-7); LYMPHOCYTES # (AUTO) 1.31 x10^3/uL (1-3.4); LYMPHOCYTES % (AUTO) 23 % (22-44); MD NO; MEAN CORPUSCULAR HEMOGLOBIN 30.1 pg (27.0-34.8); MEAN CORPUSCULAR HGB CONC 32.5 g/dL (32.4-35.8); MEAN CORPUSCULAR VOLUME 92.6 fL (80-100); MEAN PLATELET VOLUME 7.9 fL (7.4-10.4); MONOCYTES # (AUTO) 0.65 x10^3/uL (0.2-0.8); MONOCYTES % (AUTO) 11 % (2-9); NEUTROPHILS # (AUTO) 3.73 x10^3/uL (1.8-6.8); NEUTROPHILS % (AUTO) 65 % (42-75); PLATELET COUNT 214 x10^3/uL (130-400); RED BLOOD COUNT 3.29 x10^6/uL (3.82-5.3); RED CELL DISTRIBUTION WIDTH 16.4 % (9.6-15.2)
[2019-12-15 04:58] LABS: ANION GAP 4 mmol/L (5-15); CALCIUM 8.6 mg/dL (8.5-10.1); CHLORIDE 107 mmol/L (98-107); CREATININE 1.01 mg/dL (0.55-1.02)
[2019-12-15] MEDS: LEVOTHYROXINE 50 MCG TABLET PO SCH (05:37)
[2019-12-15] MEDS: ASPIRIN 81 MG TABLET EC PO SCH (05:37)
[2019-12-15 07:47] VITALS: BP 95/86
[2019-12-15] MEDS: GABAPENTIN 300 MG CAPSULE PO SCH ×3 (08:58→20:10)
[2019-12-15] MEDS: LACTOBACILLUS CHEW TABLET PO SCH (08:58)
[2019-12-15] MEDS: DIGOXIN 0.125 MG TABLET PO SCH (08:59)
[2019-12-15] MEDS: SODIUM CHLORIDE FLUSH 10ML SYR IVF SCH ×2 (09:00→20:11)
[2019-12-15] MEDS ORDERED: FUROSEMIDE 20 MG TABLET PO SCH (09:00)
[2019-12-15] MEDS ORDERED: HEPARIN 5,000 UNITS/ML, 1ML IV PRN (09:00)
[2019-12-15] MEDS: SENNA/DOCUSATE TABLET PO SCH (09:00)
[2019-12-15] MEDS ORDERED: HEPARIN 5,000 UNITS/ML, 1ML IV ONE (09:00)
[2019-12-15] MEDS ORDERED: METOPROLOL SUCCINATE 25 MG TAB.ER.24H PO SCH (09:00)
[2019-12-15] MEDS ORDERED: DIGOXIN 0.125 MG TABLET PO SCH (09:00)
[2019-12-15] MEDS ORDERED: POTASSIUM CHLORIDE 10 MEQ TABLET.ER PO SCH (09:00)
[2019-12-15] MEDS: SODIUM CHLORIDE 0.9% 1,000 ML IV SCH (09:01)
[2019-12-15] MEDS ORDERED: GADOTERATE 7.5 MMOL/15 ML SYR ONE (11:26)
[2019-12-15] MEDS: HEPARIN 25,000 UNITS/250ML PMX 250 ML IV PRN (13:09)
[2019-12-15 13:34] VITALS: BP 110/69
[2019-12-15] MEDS ORDERED: VANCOMYCIN PMX 1GM/200ML 200 ML IV SCH (17:00)
[2019-12-15 18:52] VITALS: BP 92/59
[2019-12-15] MEDS: ATORVASTATIN 40 MG TABLET PO SCH (20:10)
[2019-12-15] MEDS: morphine SULFATE 10 MG/ML, 1ML IVPush PRN (22:00)
[2019-12-15] MEDS: MELATONIN 5 MG TABLET PO PRN (22:00)
[2019-12-16] MEDS: SODIUM CHLORIDE 0.9% 1,000 ML IV SCH ×2 (01:00→19:35)
[2019-12-16 01:01] VITALS: BP 88/48
[2019-12-16 02:18] LABS: INTERNATIONAL NORMALIZED RATIO 1.07 (0.93-1.1); PROTHROMBIN TIME 11.4 Seconds (9.6-11.5)
[2019-12-16 02:20] LABS: ANION GAP 7 mmol/L (5-15); BASOPHILS # (AUTO) 0.04 x10^3/uL (0-0.1); BASOPHILS % (AUTO) 1 % (0-1); CALCIUM 8.2 mg/dL (8.5-10.1); CHLORIDE 107 mmol/L (98-107); CREATININE 1.05 mg/dL (0.55-1.02); EOSINOPHILS # (AUTO) 0.06 x10^3/uL (0-0.4); EOSINOPHILS % (AUTO) 1 % (1-7); LYMPHOCYTES # (AUTO) 1.32 x10^3/uL (1-3.4); LYMPHOCYTES % (AUTO) 29 % (22-44); MD NO; MEAN CORPUSCULAR HGB CONC 32.8 g/dL (32.4-35.8); MEAN CORPUSCULAR VOLUME 91.2 fL (80-100); MONOCYTES # (AUTO) 0.61 x10^3/uL (0.2-0.8); MONOCYTES % (AUTO) 13 % (2-9); NEUTROPHILS # (AUTO) 2.54 x10^3/uL (1.8-6.8); NEUTROPHILS % (AUTO) 56 % (42-75); PLATELET COUNT 206 x10^3/uL (130-400); RED BLOOD COUNT 3.14 x10^6/uL (3.82-5.3); RED CELL DISTRIBUTION WIDTH 16.4 % (9.6-15.2)
[2019-12-16] MEDS: PIPERACILLIN/TAZO/PMX 3.375GM 50 ML IV SCH ×4 (03:02→21:46)
[2019-12-16] MEDS: LEVOTHYROXINE 50 MCG TABLET PO SCH (05:24)
[2019-12-16] MEDS: ASPIRIN 81 MG TABLET EC PO SCH (05:24)
[2019-12-16 06:41] VITALS: BP 98/51
[2019-12-16] MEDS: LACTOBACILLUS CHEW TABLET PO SCH (08:45)
[2019-12-16] MEDS: GABAPENTIN 300 MG CAPSULE PO SCH ×3 (08:45→21:46)
[2019-12-16] MEDS: DIGOXIN 0.125 MG TABLET PO SCH (08:45)
[2019-12-16] MEDS: SODIUM CHLORIDE FLUSH 10ML SYR IVF SCH ×2 (08:47→21:46)
[2019-12-16] MEDS: SENNA/DOCUSATE TABLET PO SCH (08:47)
[2019-12-16] MEDS: DAPTOMYCIN 350 MG in SODIUM CHLORIDE 0.9% 100 ML IVPB SCH (09:26)
[2019-12-16] MEDS ORDERED: FENTANYL PF 250 MCG/5ML ONE (10:14)
[2019-12-16] MEDS ORDERED: CEFAZOLIN 1,000 MG ONE (10:35)
[2019-12-16] MEDS ORDERED: PROPOFOL 50 ML ONE (10:54)
[2019-12-16] MEDS ORDERED: ONDANSETRON ODT 8 MG PO PRN (11:30)
[2019-12-16] MEDS ORDERED: METOPROLOL 1 MG/ML, 5ML IV PRN (11:30)
[2019-12-16] MEDS ORDERED: OXYcodone 5 MG/5 ML ORAL.SOL UDC PO PRN (11:30)
[2019-12-16] MEDS ORDERED: EPHEDRINE 50 MG/ML, 1ML IM PRN (11:30)
[2019-12-16] MEDS ORDERED: PROMETHAZINE 25 MG/ML, 1ML IV PRN (11:30)
[2019-12-16] MEDS ORDERED: HYDROmorphone 2 MG/ML, 1ML IVPush PRN (11:30)
[2019-12-16] MEDS ORDERED: DIAZEPAM 5 MG/ML, 2ML IVPush PRN (11:30)
[2019-12-16] MEDS ORDERED: ONDANSETRON 2MG/ML, 2ML IV PRN (11:30)
[2019-12-16] MEDS ORDERED: FENTANYL PF 100 MCG/2ML IV PRN (11:30)
[2019-12-16] MEDS ORDERED: EPHEDRINE 50 MG/ML, 1ML ONE (11:47)
[2019-12-16] MEDS ORDERED: METOPROLOL 1 MG/ML, 5ML ONE (11:56)
[2019-12-16] MEDS ORDERED: FENTANYL PF 100 MCG/2ML ONE (12:39)
[2019-12-16] MEDS ORDERED: OXYcodone 5 MG/5 ML ORAL.SOL UDC ONE (12:39)
[2019-12-16 13:39] VITALS: BP 98/63
[2019-12-16] MEDS: morphine SULFATE 10 MG/ML, 1ML IVPush PRN ×2 (14:22→18:28)
[2019-12-16] MEDS: OXYcodone IR 5MG TABLET PO PRN (16:58)
[2019-12-16 18:46] VITALS: BP 96/61
[2019-12-16] MEDS: ATORVASTATIN 10 MG TABLET PO SCH (21:46)
[2019-12-16] MEDS: MELATONIN 5 MG TABLET PO PRN (21:52)
[2019-12-17 00:34] VITALS: BP 101/65
[2019-12-17] MEDS: OXYcodone IR 5MG TABLET PO PRN ×4 (00:43→21:27)
[2019-12-17] MEDS: PIPERACILLIN/TAZO/PMX 3.375GM 50 ML IV SCH ×4 (03:18→20:44)
[2019-12-17] MEDS: morphine SULFATE 10 MG/ML, 1ML IVPush PRN (03:25)
[2019-12-17 04:15] VITALS: BP 116/72
[2019-12-17] MEDS ORDERED: METOPROLOL TARTRATE 25 MG TAB PO ONE (05:30)
[2019-12-17] MEDS: LEVOTHYROXINE 50 MCG TABLET PO SCH (05:43)
[2019-12-17] MEDS: ASPIRIN 81 MG TABLET EC PO SCH (05:43)
[2019-12-17 06:10] LABS: BASOPHILS # (AUTO) 0.02 x10^3/uL (0-0.1); BASOPHILS % (AUTO) 1 % (0-1); EOSINOPHILS # (AUTO) 0.05 x10^3/uL (0-0.4); EOSINOPHILS % (AUTO) 1 % (1-7); LYMPHOCYTES # (AUTO) 1.06 x10^3/uL (1-3.4); LYMPHOCYTES % (AUTO) 21 % (22-44); MD NO; MEAN CORPUSCULAR HEMOGLOBIN 30.2 pg (27.0-34.8); MEAN CORPUSCULAR HGB CONC 33.1 g/dL (32.4-35.8); MEAN CORPUSCULAR VOLUME 91.4 fL (80-100); MEAN PLATELET VOLUME 8.1 fL (7.4-10.4); MONOCYTES # (AUTO) 0.66 x10^3/uL (0.2-0.8); MONOCYTES % (AUTO) 13 % (2-9); NEUTROPHILS # (AUTO) 3.22 x10^3/uL (1.8-6.8); NEUTROPHILS % (AUTO) 64 % (42-75); PLATELET COUNT 197 x10^3/uL (130-400); RED BLOOD COUNT 3.22 x10^6/uL (3.82-5.3); RED CELL DISTRIBUTION WIDTH 16.2 % (9.6-15.2)
[2019-12-17 06:13] LABS: ANION GAP 8 mmol/L (5-15); CALCIUM 8.7 mg/dL (8.5-10.1); CHLORIDE 108 mmol/L (98-107)
[2019-12-17 06:14] LABS: CREATININE 1.11 mg/dL (0.55-1.02)
[2019-12-17] MEDS: HEPARIN 25,000 UNITS/250ML PMX 250 ML IV PRN (06:28)
[2019-12-17 08:16] VITALS: BP 90/56
[2019-12-17] MEDS: LACTOBACILLUS CHEW TABLET PO SCH (08:16)
[2019-12-17] MEDS: SENNA/DOCUSATE TABLET PO SCH (08:16)
[2019-12-17] MEDS: ACETAMINOPHEN 325 MG TABLET PO PRN ×3 (08:17→22:27)
[2019-12-17] MEDS: DIGOXIN 0.125 MG TABLET PO SCH (08:17)
[2019-12-17] MEDS: SODIUM CHLORIDE FLUSH 10ML SYR IVF SCH ×2 (08:17→20:27)
[2019-12-17] MEDS: GABAPENTIN 300 MG CAPSULE PO SCH ×3 (08:17→20:27)
[2019-12-17] MEDS ORDERED: SODIUM CHLORIDE 0.9%, 500ML IVBOLUS ONE ×2 (09:00→14:00)
[2019-12-17] MEDS: SODIUM CHLORIDE 0.9% 1,000 ML IV SCH (09:25)
[2019-12-17] MEDS: DAPTOMYCIN 350 MG in SODIUM CHLORIDE 0.9% 100 ML IVPB SCH (10:23)
[2019-12-17] MEDS: APIXABAN 2.5 MG TABLET PO SCH ×2 (11:16→20:27)
[2019-12-17 15:31] VITALS: BP 114/72
[2019-12-17 18:29] VITALS: BP 112/70
[2019-12-17] MEDS: ATORVASTATIN 10 MG TABLET PO SCH (20:27)
[2019-12-18 00:32] VITALS: BP 109/67
[2019-12-18] MEDS: SODIUM CHLORIDE 0.9% 1,000 ML IV SCH ×2 (00:55→16:54)
[2019-12-18] MEDS: PIPERACILLIN/TAZO/PMX 3.375GM 50 ML IV SCH ×2 (02:58→11:17)
[2019-12-18] MEDS: OXYcodone IR 5MG TABLET PO PRN ×3 (03:45→16:53)
[2019-12-18] MEDS: ASPIRIN 81 MG TABLET EC PO SCH (05:04)
[2019-12-18] MEDS: LEVOTHYROXINE 50 MCG TABLET PO SCH (05:05)
[2019-12-18] MEDS: ACETAMINOPHEN 325 MG TABLET PO PRN (05:05)
[2019-12-18 06:46] VITALS: BP 109/65
[2019-12-18] MEDS: DIGOXIN 0.125 MG TABLET PO SCH (10:35)
[2019-12-18] MEDS: GABAPENTIN 300 MG CAPSULE PO SCH ×2 (10:35→16:52)
[2019-12-18] MEDS: APIXABAN 2.5 MG TABLET PO SCH (10:35)
[2019-12-18] MEDS: LACTOBACILLUS CHEW TABLET PO SCH (10:36)
[2019-12-18] MEDS: SENNA/DOCUSATE TABLET PO SCH (10:36)
[2019-12-18] MEDS: SODIUM CHLORIDE FLUSH 10ML SYR IVF SCH (11:19)
[2019-12-18] MEDS ORDERED: DAPT500V6 IV ×2 (11:35)
[2019-12-18] MEDS ORDERED: PIPE3.373 IV ×2 (11:35)
[2019-12-18 12:18] VITALS: BP 111/62
[2019-12-18] MEDS: DAPTOMYCIN 350 MG in SODIUM CHLORIDE 0.9% 100 ML IVPB SCH (13:40)
[2019-12-18] MEDS ORDERED: ERTAPENEM 1 GM in SODIUM CHLORIDE 0.9% 50 ML IV SCH (15:00)
[2019-12-18] MEDS ORDERED: VANCOMYCIN 900 MG in SODIUM CHLORIDE 0.9% 100 ML IVPB SCH (15:00)
[2019-12-18 18:34] VITALS: BP 149/88
== END 2019-12-18 20:13 | DRG 504 ==
LOC: ED 14:57 → EDIP 16:40 → 4EST 18:04
PROVIDERS: ADMIT Internal Medicine; ATTEND Family Medicine
PROC: 0Y6P0Z0 Detachment at Right 1st Toe, Complete, Open Approach (ICD-10-PCS; principal; 2019-12-16 10:30)
DX: I73.01 Raynaud's syndrome with gangrene (principal); E87.1 Hypo-osmolality and hyponatremia; I48.20 Chronic atrial fibrillation, unspecified; M86.171 Other acute osteomyelitis, right ankle and foot; L97.519 Non-pressure chronic ulcer of other part of right foot with unspecified severity; I48.91 Unspecified atrial fibrillation; D64.9 Anemia, unspecified; E78.5 Hyperlipidemia, unspecified; I25.10 Atherosclerotic heart disease of native coronary artery without angina pectoris; M32.9 Systemic lupus erythematosus, unspecified; N18.3 Chronic kidney disease, stage 3 (moderate); Z79.01 Long term (current) use of anticoagulants; Z80.1 Family history of malignant neoplasm of trachea, bronchus and lung; Z90.710 Acquired absence of both cervix and uterus; Z95.0 Presence of cardiac pacemaker; Z95.5 Presence of coronary angioplasty implant and graft
CPT/HCPCS: 36415; 80048; 80053; 80162; 82550; 83605; 83735; 84443; 85025; 85520; 85610; 85651; 86140; 87040; 87081; 88305; 93005; 99214; 99285; G0378; J0690; J0878; J1335; J2543; J2704; J3010; J3370; A9575; J2270; J7030; J7040; J7050

== ENCOUNTER → 2019-12-21 | Outpatient (CLI) | payer MEDICARE, OTHER ==
[~2019-12-21] MED LIST changes: +DAPT500V6 IV; +LACT1CAP40 PO; +LEVO50TA5 PO; +PIPE3.373 IV
== END | disposition home or self-care (01) ==
LOC: RAD 12:45
PROVIDERS: ATTEND Internal Medicine
DX: M86.171 Other acute osteomyelitis, right ankle and foot (principal); Z79.2 Long term (current) use of antibiotics
CPT/HCPCS: 36573; C1751

== ENCOUNTER → 2020-03-06 | Outpatient (CLI) | payer MEDICARE, OTHER ==
[~2020-03-06] MED LIST changes: +MIRT-34 PO; +MULT-484 PO; +THIA100T67 PO; +VANC1VIA3 PO
== END | disposition home or self-care (01) ==
LOC: WOUND 14:28
PROVIDERS: ATTEND Podiatrist Foot & Ankle Surgery
DX: T87.89 Other complications of amputation stump (principal); I70.235 Atherosclerosis of native arteries of right leg with ulceration of other part of foot; L97.515 Non-pressure chronic ulcer of other part of right foot with muscle involvement without evidence of necrosis; I73.01 Raynaud's syndrome with gangrene; L93.0 Discoid lupus erythematosus; I25.10 Atherosclerotic heart disease of native coronary artery without angina pectoris; K21.9 Gastro-esophageal reflux disease without esophagitis; E03.9 Hypothyroidism, unspecified; D63.1 Anemia in chronic kidney disease; N18.3 Chronic kidney disease, stage 3 (moderate); I70.0 Atherosclerosis of aorta; I21.A1 Myocardial infarction type 2; I48.91 Unspecified atrial fibrillation; M86.8X7 Other osteomyelitis, ankle and foot; Z87.891 Personal history of nicotine dependence; Z79.82 Long term (current) use of aspirin; E78.5 Hyperlipidemia, unspecified; Z79.2 Long term (current) use of antibiotics; Z79.01 Long term (current) use of anticoagulants; E43 Unspecified severe protein-calorie malnutrition; Z95.0 Presence of cardiac pacemaker; Z90.710 Acquired absence of both cervix and uterus; Z90.49 Acquired absence of other specified parts of digestive tract; Z68.1 Body mass index [BMI] 19.9 or less, adult; Y83.5 Amputation of limb(s) as the cause of abnormal reaction of the patient, or of later complication, without mention of misadventure at the time of the procedure; M81.0 Age-related osteoporosis without current pathological fracture
CPT/HCPCS: 11043

== ENCOUNTER → 2020-03-13 | Outpatient (CLI) | payer MEDICARE, OTHER | END | disposition home or self-care (01) | LOC: WOUND 13:52 | PROVIDERS: ATTEND Podiatrist Foot & Ankle Surgery | DX: T87.89 Other complications of amputation stump (principal); I70.235 Atherosclerosis of native arteries of right leg with ulceration of other part of foot; L97.513 Non-pressure chronic ulcer of other part of right foot with necrosis of muscle; I73.01 Raynaud's syndrome with gangrene; L93.0 Discoid lupus erythematosus; I25.10 Atherosclerotic heart disease of native coronary artery without angina pectoris; K21.9 Gastro-esophageal reflux disease without esophagitis; E03.9 Hypothyroidism, unspecified; D63.1 Anemia in chronic kidney disease; N18.3 Chronic kidney disease, stage 3 (moderate); I70.0 Atherosclerosis of aorta; I21.A1 Myocardial infarction type 2; I48.91 Unspecified atrial fibrillation; M81.0 Age-related osteoporosis without current pathological fracture; M86.8X7 Other osteomyelitis, ankle and foot; E43 Unspecified severe protein-calorie malnutrition; Z87.891 Personal history of nicotine dependence; Z79.82 Long term (current) use of aspirin; E78.5 Hyperlipidemia, unspecified; Z79.2 Long term (current) use of antibiotics; Z79.01 Long term (current) use of anticoagulants; Z95.0 Presence of cardiac pacemaker; Z90.710 Acquired absence of both cervix and uterus; Z90.49 Acquired absence of other specified parts of digestive tract; Z68.1 Body mass index [BMI] 19.9 or less, adult; Y83.5 Amputation of limb(s) as the cause of abnormal reaction of the patient, or of later complication, without mention of misadventure at the time of the procedure | CPT/HCPCS: 11043 ==

== ENCOUNTER 2020-03-19 09:09 | Inpatient (IN) | payer MEDICARE, OTHER ==
[~2020-03-19] VITALS: Ht 175.3 cm; Wt 47.9 kg
[2020-03-19] MEDS ORDERED: SODIUM CHLORIDE FLUSH 10ML SYR IVF ONE (09:30)
--- NOTE | 2020-03-19 09:43 | NUR ---
pt presents to ED with c/o orthopnea x 3 days, denies other sx. pt has hx heart failure. pt denies sob when sitting or walking. pt is a&o, resps even and unlabored, able to speak in full sentences. 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 New dressing applied per MD instructions with adaptic and gauze, orthopedic shoe reapplied. EKG taken on arrival. all monitors in place on arrival. pt dressed in gown. labs drawn. awaiting xray and dispo. pt educated regarding poc, agreeable. call light in reach.
[2020-03-19 09:56] LABS: BASOPHILS # (AUTO) 0.03 x10^3/uL (0-0.1); BASOPHILS % (AUTO) 1 % (0-1); EOSINOPHILS # (AUTO) 0.03 x10^3/uL (0-0.4); EOSINOPHILS % (AUTO) 1 % (1-7); LYMPHOCYTES # (AUTO) 0.87 x10^3/uL (1-3.4); LYMPHOCYTES % (AUTO) 22 % (22-44); MD NO; MEAN CORPUSCULAR HGB CONC 31.4 g/dL (32.4-35.8); MEAN CORPUSCULAR VOLUME 88.9 fL (80-100); MEAN PLATELET VOLUME 7.2 fL (7.4-10.4); MONOCYTES # (AUTO) 0.48 x10^3/uL (0.2-0.8); MONOCYTES % (AUTO) 12 % (2-9); NEUTROPHILS # (AUTO) 2.59 x10^3/uL (1.8-6.8); NEUTROPHILS % (AUTO) 65 % (42-75); PLATELET COUNT 288 x10^3/uL (130-400); RED BLOOD COUNT 3.53 x10^6/uL (3.82-5.3); RED CELL DISTRIBUTION WIDTH 20.1 % (9.6-15.2)
--- NOTE | 2020-03-19 09:58 | NUR ---
radiology paged to perform cxr.
[2020-03-19 10:08] LABS: ALBUMIN 3.1 g/dL (3.4-5.0); ANION GAP 6 mmol/L (5-15); CALCIUM 9.1 mg/dL (8.5-10.1); CHLORIDE 110 mmol/L (98-107)
[2020-03-19 10:14] LABS: ALANINE AMINOTRANSFERASE 12 U/L (12-78); ALKALINE PHOSPHATASE 103 U/L (45-117); BILIRUBIN,TOTAL 0.8 mg/dL (0.2-1.0); CREATININE 0.93 mg/dL (0.55-1.02); TOTAL PROTEIN 6.7 g/dL (6.4-8.2)
[2020-03-19] MEDS ORDERED: FUROSEMIDE 40 MG/4 ML IV ONE (10:30)
[2020-03-19] MEDS ORDERED: FUROSEMIDE 40 MG/4 ML ONE (11:26)
[2020-03-19] MEDS ORDERED: SODIUM CHLORIDE FLUSH 10ML SYR IVF PRN (11:30)
--- NOTE | 2020-03-19 12:00 | NUR ---
PT MEDICATED PER EMAR, TOLERATED WELL. PT ASSITED TO BATHROOM, REATTACHED TO ALL MONITORS. PT REMAINS PACED AT RATE 70 WITH NO ECTOPY, SPO2 MAINTAINED >95% ON ROOM AIR. PT GIVEN LUNCH WITH MD FONTANA. PT UPDATED WITH POC TO ADMIT, AGREEABLE. PT CANNOT RECALL HOME MEDS, RN UNABLE TO COMPLETE MED REC AT THIS TIME.
[2020-03-19] MEDS ORDERED: FURO-93 PO (12:42)
[2020-03-19] MEDS ORDERED: GABA300C PO (12:42)
[2020-03-19] MEDS ORDERED: METOPROLOL PO (12:42)
[2020-03-19] MEDS ORDERED: ERGO500018 PO (12:42)
[2020-03-19] MEDS ORDERED: POTA10CA PO (12:42)
[2020-03-19] MEDS ORDERED: ONDANSETRON ODT 4 MG PO PRN (13:00)
[2020-03-19] MEDS ORDERED: ENALAPRILAT 1.25 MG/ML, 2ML IVPush PRN (13:00)
[2020-03-19] MEDS ORDERED: DOCUSATE 100 MG CAPSULE PO PRN (13:00)
[2020-03-19] MEDS ORDERED: ONDANSETRON 2MG/ML, 2ML IVPush PRN (13:00)
--- NOTE | 2020-03-19 13:07 | NUR ---
pt in CT at this time.
[2020-03-19 13:31] LABS: C-REACTIVE PROTEIN, QUANT 0.81 mg/dL (0.02-0.49)
[2020-03-19 13:40] LABS: FREE T4 (FREE THYROXINE) 1.5 ng/dL (0.76-1.46)
[2020-03-19] MEDS ORDERED: CEFTRIAXONE PMX 1GM/50ML 50 ML ONE (14:01)
[2020-03-19] MEDS: CEFTRIAXONE PMX 1GM/50ML 50 ML IV SCH (14:23)
--- NOTE | 2020-03-19 14:35 | NUR ---
ROCEPHIN GTT INITIATED AFTER BLOOD CX DRAWN X 2. PT DOZING INTERMITTENTLY, DENIES PAIN. RESPS EVEN AND UNLABORED. SPO2 MAINTAINED >95% ON ROOM AIR. NADN. AWAITING CARDIAC TELE ROOM ASSIGNMENT AND TRANSPORT.
--- NOTE | 2020-03-19 15:40 | NUR ---
report called to receiving SUNIL Albarado. pt sleeping, resps even and unlabored. pt to be transported to [facility]. JULY Douglass given report to monitor until transport.
--- NOTE | 2020-03-19 15:50 | NUR ---
SPOKE WITH SUNDEEP HUANG WHO STATED PT IS NOT APPROPRIATE TO TEST FOR COVID AT THIS TIME BASED ON CURRENT XRAY IMAGES.
[2020-03-19] MEDS: GUAIFENESIN 200 MG TABLET PO SCH ×2 (16:00→20:37)
[2020-03-19 17:00] VITALS: BP 105/61
[2020-03-19] MEDS: APIXABAN 2.5 MG TABLET PO SCH (20:37)
[2020-03-19] MEDS: DOXYCYCLINE 100 MG in DEXTROSE 5% 250 ML IV SCH (20:37)
[2020-03-19] MEDS: ACETAMINOPHEN 325 MG TABLET PO PRN (20:37)
[2020-03-19 20:42] VITALS: BP 146/80
[2020-03-20 00:50] VITALS: BP 134/70
[2020-03-20] MEDS: GUAIFENESIN 200 MG TABLET PO SCH ×4 (05:10→20:01)
[2020-03-20] MEDS: LEVOTHYROXINE 50 MCG TABLET PO SCH (05:10)
[2020-03-20 05:20] LABS: BASOPHILS # (AUTO) 0.07 x10^3/uL (0-0.1); BASOPHILS % (AUTO) 2 % (0-1); EOSINOPHILS # (AUTO) 0.05 x10^3/uL (0-0.4); EOSINOPHILS % (AUTO) 1 % (1-7); LYMPHOCYTES # (AUTO) 1.04 x10^3/uL (1-3.4); LYMPHOCYTES % (AUTO) 24 % (22-44); MD NO; MEAN CORPUSCULAR HEMOGLOBIN 28.4 pg (27.0-34.8); MEAN CORPUSCULAR HGB CONC 32.2 g/dL (32.4-35.8); MEAN CORPUSCULAR VOLUME 88.1 fL (80-100); MEAN PLATELET VOLUME 7.3 fL (7.4-10.4); MONOCYTES # (AUTO) 0.61 x10^3/uL (0.2-0.8); MONOCYTES % (AUTO) 14 % (2-9); NEUTROPHILS # (AUTO) 2.58 x10^3/uL (1.8-6.8); NEUTROPHILS % (AUTO) 59 % (42-75); PLATELET COUNT 251 x10^3/uL (130-400); RED CELL DISTRIBUTION WIDTH 20.7 % (9.6-15.2)
[2020-03-20 05:30] LABS: ANION GAP 6 mmol/L (5-15); CALCIUM 8.6 mg/dL (8.5-10.1); CHLORIDE 109 mmol/L (98-107)
[2020-03-20 05:31] LABS: CREATININE 1.12 mg/dL (0.55-1.02)
[2020-03-20 07:15] VITALS: BP 136/75
[2020-03-20] MEDS: APIXABAN 2.5 MG TABLET PO SCH (08:51)
[2020-03-20] MEDS: DOXYCYCLINE 100 MG in DEXTROSE 5% 250 ML IV SCH ×2 (08:51→19:54)
[2020-03-20] MEDS: GABAPENTIN 300 MG CAPSULE PO SCH (08:51)
[2020-03-20] MEDS: POTASSIUM CHLORIDE 10 MEQ TABLET.ER PO SCH (08:51)
[2020-03-20] MEDS: METOPROLOL SUCCINATE 50 MG TAB.ER.24H PO SCH (08:52)
[2020-03-20] MEDS ORDERED: METOPROLOL 50 MG PO SCH (09:00)
[2020-03-20] MEDS ORDERED: FUROSEMIDE 40 MG/4 ML IV SCH (09:00)
[2020-03-20] MEDS: PANTOPRAZOLE 40 MG IV IVPush SCH (09:56)
[2020-03-20] MEDS: metroNIDAZOLE 500 MG TABLET PO SCH ×2 (13:38→20:01)
[2020-03-20] MEDS: CEFTRIAXONE PMX 1GM/50ML 50 ML IV SCH (13:38)
[2020-03-20 13:40] VITALS: BP 111/57
[2020-03-20 20:21] VITALS: BP 114/62
[2020-03-20] MEDS: ACETAMINOPHEN 325 MG TABLET PO PRN (21:16)
[2020-03-20] MEDS: MELATONIN 5 MG TABLET PO PRN (22:18)
[2020-03-21 02:15] VITALS: BP 148/78
[2020-03-21 05:13] LABS: MEAN CORPUSCULAR HEMOGLOBIN 27.5 pg (27.0-34.8); MEAN CORPUSCULAR HGB CONC 31.3 g/dL (32.4-35.8); MEAN CORPUSCULAR VOLUME 87.9 fL (80-100); MEAN PLATELET VOLUME 7.3 fL (7.4-10.4); PLATELET COUNT 254 x10^3/uL (130-400); RED BLOOD COUNT 3.77 x10^6/uL (3.82-5.3); RED CELL DISTRIBUTION WIDTH 20.5 % (9.6-15.2)
[2020-03-21] MEDS: LEVOTHYROXINE 50 MCG TABLET PO SCH (05:19)
[2020-03-21] MEDS: metroNIDAZOLE 500 MG TABLET PO SCH ×3 (05:19→20:36)
[2020-03-21] MEDS: GUAIFENESIN 200 MG TABLET PO SCH ×4 (05:19→20:36)
[2020-03-21 05:24] LABS: ANION GAP 7 mmol/L (5-15); CALCIUM 8.7 mg/dL (8.5-10.1); CHLORIDE 105 mmol/L (98-107)
[2020-03-21 05:57] LABS: MD YES
[2020-03-21 05:59] LABS: BAND#(MANUAL) 0.04 x10^3/uL; BANDS%(MANUAL) 1 % (0-7); BASOS#(MANUAL) 0.09 x10^3/uL (0-0.1); BASOS% (MANUAL) 2 % (0-1); LYMPHS% (MANUAL) 25 % (22-44); MONOS#(MANUAL) 0.31 x10^3/uL (0.3-2.7); MONOS% (MANUAL) 7 % (2-9); SEG#(MANUAL) 2.86 x10^3/uL (1.8-6.8); SEGS% (MANUAL) 65 % (42-75)
[2020-03-21 06:00] LABS: ACANTHOCYTES 1+; ANISOCYTOSIS 2+; HYPOCHROMIA 1+; MICROCYTOSIS 1+; OVALOCYTES 1+
[2020-03-21 06:06] LABS: <PLATELET ESTIMATE> ADEQUATE; <PLT MORPHOLOGY> NORMAL PLT MORPH
[2020-03-21 07:50] VITALS: BP 112/58
[2020-03-21] MEDS ORDERED: FUROSEMIDE 20 MG/2 ML IV SCH (09:00)
[2020-03-21] MEDS ORDERED: FUROSEMIDE 20 MG TABLET PO SCH (09:00)
[2020-03-21] MEDS: METOPROLOL SUCCINATE 50 MG TAB.ER.24H PO SCH (09:05)
[2020-03-21] MEDS: GABAPENTIN 300 MG CAPSULE PO SCH (09:06)
[2020-03-21] MEDS: PANTOPRAZOLE 40 MG IV IVPush SCH (09:06)
[2020-03-21] MEDS: DOXYCYCLINE 100 MG in DEXTROSE 5% 250 ML IV SCH ×2 (09:06→19:42)
[2020-03-21] MEDS: POTASSIUM CHLORIDE 10 MEQ TABLET.ER PO SCH (09:06)
[2020-03-21] MEDS: ACETAMINOPHEN 325 MG TABLET PO PRN (10:34)
[2020-03-21] MEDS ORDERED: ONABOTULINUMTOXINA 100 UNITS IM ONE (11:00)
[2020-03-21 12:31] VITALS: BP 105/67
[2020-03-21 13:23] VITALS: BP 106/64
[2020-03-21] MEDS: CEFTRIAXONE PMX 1GM/50ML 50 ML IV SCH (14:15)
[2020-03-21 19:49] VITALS: BP 110/62
[2020-03-21] MEDS: MELATONIN 5 MG TABLET PO PRN (20:36)
[2020-03-22 01:30] VITALS: BP 119/59
[2020-03-22] MEDS: LEVOTHYROXINE 50 MCG TABLET PO SCH (05:12)
[2020-03-22] MEDS: GUAIFENESIN 200 MG TABLET PO SCH ×4 (05:12→20:34)
[2020-03-22] MEDS: metroNIDAZOLE 500 MG TABLET PO SCH ×3 (05:12→20:34)
[2020-03-22 05:14] LABS: MEAN CORPUSCULAR HEMOGLOBIN 28.2 pg (27.0-34.8); MEAN CORPUSCULAR VOLUME 88.1 fL (80-100); MEAN PLATELET VOLUME 7.7 fL (7.4-10.4); PLATELET COUNT 232 x10^3/uL (130-400); RED BLOOD COUNT 3.52 x10^6/uL (3.82-5.3); RED CELL DISTRIBUTION WIDTH 20.5 % (9.6-15.2)
[2020-03-22 05:18] LABS: ANION GAP 6 mmol/L (5-15); CALCIUM 8.7 mg/dL (8.5-10.1); CHLORIDE 108 mmol/L (98-107)
[2020-03-22 06:13] LABS: MD YES
[2020-03-22 06:18] LABS: BAND#(MANUAL) 0.21 x10^3/uL; BANDS%(MANUAL) 6 % (0-7); BASOS#(MANUAL) 0.11 x10^3/uL (0-0.1); BASOS% (MANUAL) 3 % (0-1); EOS#(MANUAL) 0.04 x10^3/uL (0.0-0.4); EOS% (MANUAL) 1 % (1-7); LYMPH#(MANUAL) 0.98 x10^3/uL (1-3.4); LYMPHS% (MANUAL) 28 % (22-44); SEG#(MANUAL) 1.47 x10^3/uL (1.8-6.8); SEGS% (MANUAL) 42 % (42-75)
[2020-03-22 06:19] LABS: MONOS#(MANUAL) 0.67 x10^3/uL (0.3-2.7); MONOS% (MANUAL) 19 % (2-9)
[2020-03-22 06:23] LABS: ACANTHOCYTES 1+; ANISOCYTOSIS 2+; ECHINOCYTES 1+; OVALOCYTES 1+
[2020-03-22 06:24] LABS: <PLATELET ESTIMATE> ADEQUATE; <PLT MORPHOLOGY> NORMAL PLT MORPH; HYPOCHROMIA 1+
[2020-03-22 06:49] VITALS: BP 105/55
[2020-03-22] MEDS ORDERED: CHLORHEXIDINE 15 ML UDC ONE (07:04)
[2020-03-22] MEDS ORDERED: ONDANSETRON 2MG/ML, 2ML ONE (07:34)
[2020-03-22] MEDS ORDERED: ROCURONIUM 10 MG/ML,10ML ONE (07:34)
[2020-03-22] MEDS ORDERED: PROPOFOL 10 MG/ML, 100ML IV ONE (07:34)
[2020-03-22] MEDS ORDERED: SUCCINYLCHOLINE 20 MG/ML, 10ML ONE (07:34)
[2020-03-22] MEDS ORDERED: DEXAMETHASONE 4 MG/ML, 1ML ONE (07:34)
[2020-03-22] MEDS ORDERED: AMPICILLIN/SULBACTAM 3 GM in SODIUM CHLORIDE 0.9% 100 ML IV SCH (09:00)
[2020-03-22] MEDS: POTASSIUM CHLORIDE 10 MEQ TABLET.ER PO SCH (09:12)
[2020-03-22] MEDS: GABAPENTIN 300 MG CAPSULE PO SCH (09:12)
[2020-03-22] MEDS: FUROSEMIDE 20 MG TABLET PO SCH (09:12)
[2020-03-22] MEDS: PANTOPRAZOLE 40 MG IV IVPush SCH (09:12)
[2020-03-22] MEDS: AMPICILLIN/SULBACTAM 3 GM in SODIUM CHLORIDE 0.9% 100 ML IV SCH ×3 (09:35→22:21)
[2020-03-22] MEDS ORDERED: ONABOTULINUMTOXINA 100 UNITS IM ONE (11:30)
[2020-03-22 12:45] VITALS: BP 100/58
[2020-03-22 20:07] VITALS: BP 101/56
[2020-03-23 00:09] VITALS: BP 123/69
[2020-03-23] MEDS: AMPICILLIN/SULBACTAM 3 GM in SODIUM CHLORIDE 0.9% 100 ML IV SCH ×2 (03:39→10:58)
[2020-03-23] MEDS: metroNIDAZOLE 500 MG TABLET PO SCH ×2 (05:31→13:17)
[2020-03-23] MEDS: GUAIFENESIN 200 MG TABLET PO SCH ×2 (05:31→13:17)
[2020-03-23] MEDS: LEVOTHYROXINE 50 MCG TABLET PO SCH (05:31)
[2020-03-23 07:16] VITALS: BP 129/74
[2020-03-23] MEDS: PANTOPRAZOLE 40 MG IV IVPush SCH (08:05)
[2020-03-23] MEDS: GABAPENTIN 300 MG CAPSULE PO SCH (08:10)
[2020-03-23] MEDS: POTASSIUM CHLORIDE 10 MEQ TABLET.ER PO SCH (08:10)
[2020-03-23] MEDS: FUROSEMIDE 20 MG TABLET PO SCH (08:10)
[2020-03-23] MEDS ORDERED: APIXABAN 2.5 MG TABLET PO SCH (09:00)
[2020-03-23] MEDS ORDERED: AMOX1TAB64 PO (09:43)
[2020-03-23] MEDS ORDERED: PANT40TA3 PO (09:43)
== END 2020-03-23 15:49 | disposition home health service (06) | DRG 177 ==
LOC: ED 10:56 → EDIP 11:13 → 5SO 16:42 → DCLOUNGE 03-23 15:31
PROVIDERS: ADMIT Internal Medicine; ATTEND Hospitalist
PROC: 0DB48ZX Excision of Esophagogastric Junction, Via Natural or Artificial Opening Endoscopic, Diagnostic (ICD-10-PCS; 2020-03-22)
PROC: 3E0G8GC Introduction of Other Therapeutic Substance into Upper GI, Via Natural or Artificial Opening Endoscopic (ICD-10-PCS; 2020-03-22)
PROC: 0D738ZZ Dilation of Lower Esophagus, Via Natural or Artificial Opening Endoscopic (ICD-10-PCS; 2020-03-22)
PROC: 0DB98ZX Excision of Duodenum, Via Natural or Artificial Opening Endoscopic, Diagnostic (ICD-10-PCS; principal; 2020-03-22 07:30)
DX: J69.0 Pneumonitis due to inhalation of food and vomit (principal); I50.33 Acute on chronic diastolic (congestive) heart failure; E43 Unspecified severe protein-calorie malnutrition; I42.9 Cardiomyopathy, unspecified; I48.20 Chronic atrial fibrillation, unspecified; Z68.1 Body mass index [BMI] 19.9 or less, adult; I31.3 Pericardial effusion (noninflammatory); K22.2 Esophageal obstruction; R13.14 Dysphagia, pharyngoesophageal phase; E03.9 Hypothyroidism, unspecified; D64.9 Anemia, unspecified; I25.10 Atherosclerotic heart disease of native coronary artery without angina pectoris; I73.00 Raynaud's syndrome without gangrene; K21.0 Gastro-esophageal reflux disease with esophagitis; Z20.828 Contact with and (suspected) exposure to other viral communicable diseases; K22.8 Other specified diseases of esophagus; K44.9 Diaphragmatic hernia without obstruction or gangrene; I73.9 Peripheral vascular disease, unspecified; M32.9 Systemic lupus erythematosus, unspecified; N18.3 Chronic kidney disease, stage 3 (moderate); Z79.01 Long term (current) use of anticoagulants; I25.2 Old myocardial infarction; Z90.710 Acquired absence of both cervix and uterus; Z79.899 Other long term (current) drug therapy; Z90.49 Acquired absence of other specified parts of digestive tract; Z89.429 Acquired absence of other toe(s), unspecified side
CPT/HCPCS: 36415; 71045; 71260; 74220; 80048; 80053; 80162; 83880; 84145; 84439; 84443; 85025; 86140; 87040; 87635; 88305; 93005; 96374; 99285; G0378; J0295; J0696; J1100; J1940; J2405; J2704; J7060; C1725; C9113; J0330

== ENCOUNTER 2020-03-27 14:12 | Outpatient (CLI) | payer MEDICARE, OTHER ==
[~2020-03-27 14:12] MED LIST changes: +AMOX1TAB64 PO; +ERGO500018 PO; +FURO-93 PO; +GABA300C PO; +METOPROLOL PO; +PANT40TA3 PO
== END 2020-03-27 23:59 | disposition home or self-care (01) ==
LOC: WOUND 14:12
PROVIDERS: ATTEND Podiatrist Foot & Ankle Surgery
DX: T87.89 Other complications of amputation stump (principal); I70.235 Atherosclerosis of native arteries of right leg with ulceration of other part of foot; L97.513 Non-pressure chronic ulcer of other part of right foot with necrosis of muscle; I73.01 Raynaud's syndrome with gangrene; L93.0 Discoid lupus erythematosus; I25.10 Atherosclerotic heart disease of native coronary artery without angina pectoris; K21.9 Gastro-esophageal reflux disease without esophagitis; E03.9 Hypothyroidism, unspecified; I50.33 Acute on chronic diastolic (congestive) heart failure; D63.1 Anemia in chronic kidney disease; N18.3 Chronic kidney disease, stage 3 (moderate); I70.0 Atherosclerosis of aorta; I21.A1 Myocardial infarction type 2; M81.0 Age-related osteoporosis without current pathological fracture; M86.8X7 Other osteomyelitis, ankle and foot; E43 Unspecified severe protein-calorie malnutrition; Z87.891 Personal history of nicotine dependence; I48.20 Chronic atrial fibrillation, unspecified; E78.5 Hyperlipidemia, unspecified; Z79.82 Long term (current) use of aspirin; Z79.2 Long term (current) use of antibiotics; Z79.01 Long term (current) use of anticoagulants; Z95.0 Presence of cardiac pacemaker; Z90.710 Acquired absence of both cervix and uterus; Z90.49 Acquired absence of other specified parts of digestive tract; Z68.1 Body mass index [BMI] 19.9 or less, adult; Y83.5 Amputation of limb(s) as the cause of abnormal reaction of the patient, or of later complication, without mention of misadventure at the time of the procedure
CPT/HCPCS: 11043

== ENCOUNTER 2020-04-01 12:30 | Emergency (ER) | payer MEDICARE, OTHER ==
[~2020-04-01] VITALS: Ht 175.3 cm; Wt 50.0 kg
[2020-04-01] MEDS ORDERED: SODIUM CHLORIDE FLUSH 10ML SYR IVF ONE (13:30)
[2020-04-01 13:46] LABS: BASOPHILS # (AUTO) 0.07 x10^3/uL (0-0.1); BASOPHILS % (AUTO) 1 % (0-1); EOSINOPHILS # (AUTO) 0.03 x10^3/uL (0-0.4); EOSINOPHILS % (AUTO) 1 % (1-7); LYMPHOCYTES # (AUTO) 1.68 x10^3/uL (1-3.4); LYMPHOCYTES % (AUTO) 28 % (22-44); MD NO; MEAN CORPUSCULAR HEMOGLOBIN 27.6 pg (27.0-34.8); MEAN CORPUSCULAR HGB CONC 31.1 g/dL (32.4-35.8); MEAN CORPUSCULAR VOLUME 88.8 fL (80-100); MEAN PLATELET VOLUME 7.8 fL (7.4-10.4); MONOCYTES # (AUTO) 0.93 x10^3/uL (0.2-0.8); MONOCYTES % (AUTO) 16 % (2-9); NEUTROPHILS # (AUTO) 3.21 x10^3/uL (1.8-6.8); NEUTROPHILS % (AUTO) 54 % (42-75); PLATELET COUNT 260 x10^3/uL (130-400); RED BLOOD COUNT 3.65 x10^6/uL (3.82-5.3); RED CELL DISTRIBUTION WIDTH 20.1 % (9.6-15.2)
[2020-04-01 13:52] LABS: ALBUMIN 3.4 g/dL (3.4-5.0); ANION GAP 4 mmol/L (5-15); CALCIUM 8.7 mg/dL (8.5-10.1); CHLORIDE 106 mmol/L (98-107)
[2020-04-01 13:56] LABS: TROPONIN I 0.022 ng/mL (0.000-0.045)
[2020-04-01 14:19] VITALS: BP 131/47
--- NOTE | 2020-04-01 14:30 | NUR ---
PT AMBULATED TO THE W/ A STEADY GAIT USING HOME WALKER. URINE COLLECTED AND SENT TO LAB. PT RETURNED TO [facility]. SIDE RAILS UPX2, CALL LIGHT IN REACH. AWAITING RECHECK.
[2020-04-01 15:08] LABS: MICROSCOPIC NOT IND
== END 2020-04-01 16:34 | disposition home or self-care (01) ==
LOC: ED 15:30
DX: R06.00 Dyspnea, unspecified (principal); R53.1 Weakness; R94.31 Abnormal electrocardiogram [ECG] [EKG]; I25.2 Old myocardial infarction; I50.9 Heart failure, unspecified; I48.91 Unspecified atrial fibrillation; Z87.891 Personal history of nicotine dependence
CPT/HCPCS: 36415; 71045; 80048; 81003; 82040; 83880; 84484; 85025; 93005; 99285

== ENCOUNTER → 2020-04-03 | Outpatient (CLI) | payer MEDICARE, OTHER | END | disposition home or self-care (01) | LOC: WOUND 13:44 | PROVIDERS: ATTEND Podiatrist Foot & Ankle Surgery | DX: T87.89 Other complications of amputation stump (principal); I70.235 Atherosclerosis of native arteries of right leg with ulceration of other part of foot; L97.513 Non-pressure chronic ulcer of other part of right foot with necrosis of muscle; I73.01 Raynaud's syndrome with gangrene; L93.0 Discoid lupus erythematosus; I25.10 Atherosclerotic heart disease of native coronary artery without angina pectoris; K21.9 Gastro-esophageal reflux disease without esophagitis; E03.9 Hypothyroidism, unspecified; I50.33 Acute on chronic diastolic (congestive) heart failure; D63.1 Anemia in chronic kidney disease; N18.3 Chronic kidney disease, stage 3 (moderate); I70.0 Atherosclerosis of aorta; M81.0 Age-related osteoporosis without current pathological fracture; I25.2 Old myocardial infarction; M86.8X7 Other osteomyelitis, ankle and foot; I48.20 Chronic atrial fibrillation, unspecified; E43 Unspecified severe protein-calorie malnutrition; Z68.1 Body mass index [BMI] 19.9 or less, adult; Z87.891 Personal history of nicotine dependence; E78.5 Hyperlipidemia, unspecified; Z79.82 Long term (current) use of aspirin; Z79.2 Long term (current) use of antibiotics; Z79.01 Long term (current) use of anticoagulants; Z95.0 Presence of cardiac pacemaker; Z79.899 Other long term (current) drug therapy; Z90.710 Acquired absence of both cervix and uterus; Z90.49 Acquired absence of other specified parts of digestive tract; Y83.5 Amputation of limb(s) as the cause of abnormal reaction of the patient, or of later complication, without mention of misadventure at the time of the procedure | CPT/HCPCS: 11042 ==

== ENCOUNTER → 2020-04-10 | Outpatient (CLI) | payer MEDICARE, OTHER | END | disposition home or self-care (01) | LOC: WOUND 13:40 | PROVIDERS: ATTEND Podiatrist Foot & Ankle Surgery | DX: T87.89 Other complications of amputation stump (principal); I70.235 Atherosclerosis of native arteries of right leg with ulceration of other part of foot; L97.513 Non-pressure chronic ulcer of other part of right foot with necrosis of muscle; I73.01 Raynaud's syndrome with gangrene; L93.0 Discoid lupus erythematosus; I25.10 Atherosclerotic heart disease of native coronary artery without angina pectoris; K21.9 Gastro-esophageal reflux disease without esophagitis; E03.9 Hypothyroidism, unspecified; I50.33 Acute on chronic diastolic (congestive) heart failure; D63.1 Anemia in chronic kidney disease; N18.3 Chronic kidney disease, stage 3 (moderate); I70.0 Atherosclerosis of aorta; M81.0 Age-related osteoporosis without current pathological fracture; I25.2 Old myocardial infarction; M86.8X7 Other osteomyelitis, ankle and foot; I48.20 Chronic atrial fibrillation, unspecified; E43 Unspecified severe protein-calorie malnutrition; Z68.1 Body mass index [BMI] 19.9 or less, adult; Z87.891 Personal history of nicotine dependence; E78.5 Hyperlipidemia, unspecified; Z79.82 Long term (current) use of aspirin; Z79.2 Long term (current) use of antibiotics; Z79.01 Long term (current) use of anticoagulants; Z95.0 Presence of cardiac pacemaker; Z79.899 Other long term (current) drug therapy; Z90.710 Acquired absence of both cervix and uterus; Z90.49 Acquired absence of other specified parts of digestive tract; Y83.5 Amputation of limb(s) as the cause of abnormal reaction of the patient, or of later complication, without mention of misadventure at the time of the procedure | CPT/HCPCS: 11043 ==

== ENCOUNTER 2020-04-17 14:07 | Outpatient (CLI) | payer MEDICARE, OTHER | END 2020-04-17 23:59 | disposition home or self-care (01) | LOC: WOUND 14:07 | PROVIDERS: ATTEND Podiatrist Foot & Ankle Surgery | DX: T87.89 Other complications of amputation stump (principal); I70.235 Atherosclerosis of native arteries of right leg with ulceration of other part of foot; L97.513 Non-pressure chronic ulcer of other part of right foot with necrosis of muscle; I73.01 Raynaud's syndrome with gangrene; L93.0 Discoid lupus erythematosus; I25.10 Atherosclerotic heart disease of native coronary artery without angina pectoris; K21.9 Gastro-esophageal reflux disease without esophagitis; E03.9 Hypothyroidism, unspecified; I50.33 Acute on chronic diastolic (congestive) heart failure; D63.1 Anemia in chronic kidney disease; N18.3 Chronic kidney disease, stage 3 (moderate); I70.0 Atherosclerosis of aorta; M81.0 Age-related osteoporosis without current pathological fracture; I25.2 Old myocardial infarction; M86.8X7 Other osteomyelitis, ankle and foot; I48.20 Chronic atrial fibrillation, unspecified; E43 Unspecified severe protein-calorie malnutrition; Z68.1 Body mass index [BMI] 19.9 or less, adult; Z87.891 Personal history of nicotine dependence; E78.5 Hyperlipidemia, unspecified; Z79.82 Long term (current) use of aspirin; Z79.2 Long term (current) use of antibiotics; Z79.01 Long term (current) use of anticoagulants; Z95.0 Presence of cardiac pacemaker; Z79.899 Other long term (current) drug therapy; Z90.710 Acquired absence of both cervix and uterus; Z90.49 Acquired absence of other specified parts of digestive tract; Y83.5 Amputation of limb(s) as the cause of abnormal reaction of the patient, or of later complication, without mention of misadventure at the time of the procedure | CPT/HCPCS: C5275; Q4118 ==

== ENCOUNTER 2020-05-15 14:11 | Outpatient (CLI) | payer MEDICARE, OTHER ==
[2020-05-15 16:37] LABS: BASOPHILS # (AUTO) 0.07 x10^3/uL (0-0.1); BASOPHILS % (AUTO) 1 % (0-1); EOSINOPHILS # (AUTO) 0.02 x10^3/uL (0-0.4); EOSINOPHILS % (AUTO) 0 % (1-7); LYMPHOCYTES # (AUTO) 1.63 x10^3/uL (1-3.4); LYMPHOCYTES % (AUTO) 30 % (22-44); MD NO; MEAN CORPUSCULAR HEMOGLOBIN 28.9 pg (27.0-34.8); MEAN CORPUSCULAR HGB CONC 31.6 g/dL (32.4-35.8); MEAN PLATELET VOLUME 7.7 fL (7.4-10.4); MONOCYTES # (AUTO) 0.78 x10^3/uL (0.2-0.8); MONOCYTES % (AUTO) 14 % (2-9); NEUTROPHILS # (AUTO) 2.89 x10^3/uL (1.8-6.8); NEUTROPHILS % (AUTO) 54 % (42-75); PLATELET COUNT 220 x10^3/uL (130-400); RED BLOOD COUNT 3.67 x10^6/uL (3.82-5.3); RED CELL DISTRIBUTION WIDTH 20.1 % (9.6-15.2)
[2020-05-15 17:01] LABS: HCT (SEDRATE) 33.6 % (34.6-47.8)
== END 2020-05-15 23:59 | disposition home or self-care (01) ==
LOC: WOUND 14:11
PROVIDERS: ATTEND Podiatrist Foot & Ankle Surgery
DX: T87.89 Other complications of amputation stump (principal); I70.235 Atherosclerosis of native arteries of right leg with ulceration of other part of foot; L97.516 Non-pressure chronic ulcer of other part of right foot with bone involvement without evidence of necrosis; I73.01 Raynaud's syndrome with gangrene; L93.0 Discoid lupus erythematosus; I25.10 Atherosclerotic heart disease of native coronary artery without angina pectoris; I48.91 Unspecified atrial fibrillation; K21.9 Gastro-esophageal reflux disease without esophagitis; M81.0 Age-related osteoporosis without current pathological fracture; E03.9 Hypothyroidism, unspecified; I48.20 Chronic atrial fibrillation, unspecified; E78.5 Hyperlipidemia, unspecified; I25.2 Old myocardial infarction; M86.8X7 Other osteomyelitis, ankle and foot; N18.3 Chronic kidney disease, stage 3 (moderate); I50.33 Acute on chronic diastolic (congestive) heart failure; D63.1 Anemia in chronic kidney disease; Z87.891 Personal history of nicotine dependence; Z95.0 Presence of cardiac pacemaker; Z79.01 Long term (current) use of anticoagulants; Z90.710 Acquired absence of both cervix and uterus; Z90.49 Acquired absence of other specified parts of digestive tract; Y83.5 Amputation of limb(s) as the cause of abnormal reaction of the patient, or of later complication, without mention of misadventure at the time of the procedure
CPT/HCPCS: 11044; 36415; 85025; 85651; 86140

== ENCOUNTER → 2020-05-15 | Outpatient (CLI) | payer MEDICARE | END | disposition home or self-care (01) | LOC: RAD 15:50 | PROVIDERS: ATTEND Podiatrist Foot & Ankle Surgery | DX: M81.0 Age-related osteoporosis without current pathological fracture (principal); M25.871 Other specified joint disorders, right ankle and foot; L97.512 Non-pressure chronic ulcer of other part of right foot with fat layer exposed; I70.235 Atherosclerosis of native arteries of right leg with ulceration of other part of foot ==

== ENCOUNTER → 2020-05-22 | Outpatient (CLI) | payer MEDICARE | END | disposition home or self-care (01) | LOC: WOUND 14:06 | PROVIDERS: ATTEND Podiatrist Foot & Ankle Surgery | DX: T87.89 Other complications of amputation stump (principal); I70.235 Atherosclerosis of native arteries of right leg with ulceration of other part of foot; L97.516 Non-pressure chronic ulcer of other part of right foot with bone involvement without evidence of necrosis; I73.00 Raynaud's syndrome without gangrene; I25.10 Atherosclerotic heart disease of native coronary artery without angina pectoris; L93.0 Discoid lupus erythematosus; K21.9 Gastro-esophageal reflux disease without esophagitis; E03.9 Hypothyroidism, unspecified; M81.0 Age-related osteoporosis without current pathological fracture; I50.33 Acute on chronic diastolic (congestive) heart failure; N18.30 Chronic kidney disease, stage 3 unspecified; D63.1 Anemia in chronic kidney disease; I48.20 Chronic atrial fibrillation, unspecified; E78.5 Hyperlipidemia, unspecified; I25.2 Old myocardial infarction; M86.8X7 Other osteomyelitis, ankle and foot; Z87.891 Personal history of nicotine dependence; Z79.01 Long term (current) use of anticoagulants; Z79.82 Long term (current) use of aspirin; Z90.710 Acquired absence of both cervix and uterus; Z90.49 Acquired absence of other specified parts of digestive tract; Z95.0 Presence of cardiac pacemaker; Y83.5 Amputation of limb(s) as the cause of abnormal reaction of the patient, or of later complication, without mention of misadventure at the time of the procedure | CPT/HCPCS: 11044 ==

== ENCOUNTER → 2020-05-29 | Outpatient (CLI) | payer MEDICARE | END | disposition home or self-care (01) | LOC: WOUND 14:22 | PROVIDERS: ATTEND Podiatrist Foot & Ankle Surgery | DX: T87.89 Other complications of amputation stump (principal); I70.235 Atherosclerosis of native arteries of right leg with ulceration of other part of foot; L97.513 Non-pressure chronic ulcer of other part of right foot with necrosis of muscle; I73.00 Raynaud's syndrome without gangrene; I25.10 Atherosclerotic heart disease of native coronary artery without angina pectoris; L93.0 Discoid lupus erythematosus; K21.9 Gastro-esophageal reflux disease without esophagitis; E03.9 Hypothyroidism, unspecified; M81.0 Age-related osteoporosis without current pathological fracture; I50.33 Acute on chronic diastolic (congestive) heart failure; N18.30 Chronic kidney disease, stage 3 unspecified; D63.1 Anemia in chronic kidney disease; I48.20 Chronic atrial fibrillation, unspecified; E78.5 Hyperlipidemia, unspecified; I25.2 Old myocardial infarction; M86.8X7 Other osteomyelitis, ankle and foot; Z87.891 Personal history of nicotine dependence; Z79.01 Long term (current) use of anticoagulants; Z79.82 Long term (current) use of aspirin; Z90.710 Acquired absence of both cervix and uterus; Z90.49 Acquired absence of other specified parts of digestive tract; Z95.0 Presence of cardiac pacemaker; Y83.5 Amputation of limb(s) as the cause of abnormal reaction of the patient, or of later complication, without mention of misadventure at the time of the procedure | CPT/HCPCS: 11042 ==

== ENCOUNTER → 2020-06-12 | Outpatient (CLI) | payer MEDICARE | END | disposition home or self-care (01) | LOC: WOUND 14:15 | PROVIDERS: ATTEND Podiatrist Foot & Ankle Surgery | DX: T87.89 Other complications of amputation stump (principal); I70.235 Atherosclerosis of native arteries of right leg with ulceration of other part of foot; L97.516 Non-pressure chronic ulcer of other part of right foot with bone involvement without evidence of necrosis; I70.233 Atherosclerosis of native arteries of right leg with ulceration of ankle; L89.519 Pressure ulcer of right ankle, unspecified stage; L97.311 Non-pressure chronic ulcer of right ankle limited to breakdown of skin; I73.01 Raynaud's syndrome with gangrene; L93.0 Discoid lupus erythematosus; E03.9 Hypothyroidism, unspecified; I25.10 Atherosclerotic heart disease of native coronary artery without angina pectoris; I48.91 Unspecified atrial fibrillation; K21.9 Gastro-esophageal reflux disease without esophagitis; M81.0 Age-related osteoporosis without current pathological fracture; I50.33 Acute on chronic diastolic (congestive) heart failure; N18.30 Chronic kidney disease, stage 3 unspecified; D63.1 Anemia in chronic kidney disease; I48.20 Chronic atrial fibrillation, unspecified; E78.5 Hyperlipidemia, unspecified; I25.2 Old myocardial infarction; M86.8X7 Other osteomyelitis, ankle and foot; Z87.891 Personal history of nicotine dependence; Z79.01 Long term (current) use of anticoagulants; Z79.82 Long term (current) use of aspirin; Z95.1 Presence of aortocoronary bypass graft; Z90.710 Acquired absence of both cervix and uterus; Z90.49 Acquired absence of other specified parts of digestive tract; Y83.5 Amputation of limb(s) as the cause of abnormal reaction of the patient, or of later complication, without mention of misadventure at the time of the procedure | CPT/HCPCS: 11044 ==

== ENCOUNTER → 2020-06-19 | Outpatient (CLI) | payer MEDICARE | END | disposition home or self-care (01) | LOC: WOUND 14:20 | PROVIDERS: ATTEND Podiatrist Foot & Ankle Surgery | DX: T87.89 Other complications of amputation stump (principal); I70.235 Atherosclerosis of native arteries of right leg with ulceration of other part of foot; L97.513 Non-pressure chronic ulcer of other part of right foot with necrosis of muscle; I70.233 Atherosclerosis of native arteries of right leg with ulceration of ankle; L89.519 Pressure ulcer of right ankle, unspecified stage; L97.311 Non-pressure chronic ulcer of right ankle limited to breakdown of skin; I73.01 Raynaud's syndrome with gangrene; L93.0 Discoid lupus erythematosus; E03.9 Hypothyroidism, unspecified; I25.10 Atherosclerotic heart disease of native coronary artery without angina pectoris; I48.91 Unspecified atrial fibrillation; K21.9 Gastro-esophageal reflux disease without esophagitis; M81.0 Age-related osteoporosis without current pathological fracture; I50.33 Acute on chronic diastolic (congestive) heart failure; N18.30 Chronic kidney disease, stage 3 unspecified; D63.1 Anemia in chronic kidney disease; I48.20 Chronic atrial fibrillation, unspecified; E78.5 Hyperlipidemia, unspecified; I25.2 Old myocardial infarction; M86.8X7 Other osteomyelitis, ankle and foot; Z87.891 Personal history of nicotine dependence; Z79.01 Long term (current) use of anticoagulants; Z79.82 Long term (current) use of aspirin; Z95.1 Presence of aortocoronary bypass graft; Z90.710 Acquired absence of both cervix and uterus; Z90.49 Acquired absence of other specified parts of digestive tract; Y83.5 Amputation of limb(s) as the cause of abnormal reaction of the patient, or of later complication, without mention of misadventure at the time of the procedure | CPT/HCPCS: 11043 ==

== ENCOUNTER → 2020-06-26 | Outpatient (CLI) | payer MEDICARE | END | disposition home or self-care (01) | LOC: WOUND 14:13 | PROVIDERS: ATTEND Podiatrist Foot & Ankle Surgery | DX: T87.89 Other complications of amputation stump (principal); I70.235 Atherosclerosis of native arteries of right leg with ulceration of other part of foot; L97.513 Non-pressure chronic ulcer of other part of right foot with necrosis of muscle; I70.233 Atherosclerosis of native arteries of right leg with ulceration of ankle; L89.519 Pressure ulcer of right ankle, unspecified stage; L97.312 Non-pressure chronic ulcer of right ankle with fat layer exposed; I87.8 Other specified disorders of veins; I73.01 Raynaud's syndrome with gangrene; M86.8X7 Other osteomyelitis, ankle and foot; L93.0 Discoid lupus erythematosus; I25.10 Atherosclerotic heart disease of native coronary artery without angina pectoris; K21.9 Gastro-esophageal reflux disease without esophagitis; M81.0 Age-related osteoporosis without current pathological fracture; E03.9 Hypothyroidism, unspecified; I50.33 Acute on chronic diastolic (congestive) heart failure; N18.30 Chronic kidney disease, stage 3 unspecified; D63.1 Anemia in chronic kidney disease; I48.20 Chronic atrial fibrillation, unspecified; E78.5 Hyperlipidemia, unspecified; I25.2 Old myocardial infarction; Z79.01 Long term (current) use of anticoagulants; Z95.0 Presence of cardiac pacemaker; Z87.891 Personal history of nicotine dependence; Z90.710 Acquired absence of both cervix and uterus; Z90.49 Acquired absence of other specified parts of digestive tract; Y83.5 Amputation of limb(s) as the cause of abnormal reaction of the patient, or of later complication, without mention of misadventure at the time of the procedure | CPT/HCPCS: 11042 ==

== ENCOUNTER 2020-07-10 13:55 | Outpatient (CLI) | payer MEDICARE | END 2020-07-10 23:59 | disposition home or self-care (01) | LOC: WOUND 13:55 | PROVIDERS: ATTEND Podiatrist Foot & Ankle Surgery | DX: T87.89 Other complications of amputation stump (principal); I70.235 Atherosclerosis of native arteries of right leg with ulceration of other part of foot; L97.513 Non-pressure chronic ulcer of other part of right foot with necrosis of muscle; I70.233 Atherosclerosis of native arteries of right leg with ulceration of ankle; L89.519 Pressure ulcer of right ankle, unspecified stage; L97.312 Non-pressure chronic ulcer of right ankle with fat layer exposed; I87.8 Other specified disorders of veins; I73.01 Raynaud's syndrome with gangrene; M86.8X7 Other osteomyelitis, ankle and foot; L93.0 Discoid lupus erythematosus; I25.10 Atherosclerotic heart disease of native coronary artery without angina pectoris; K21.9 Gastro-esophageal reflux disease without esophagitis; M81.0 Age-related osteoporosis without current pathological fracture; E03.9 Hypothyroidism, unspecified; I50.33 Acute on chronic diastolic (congestive) heart failure; N18.30 Chronic kidney disease, stage 3 unspecified; D63.1 Anemia in chronic kidney disease; I48.20 Chronic atrial fibrillation, unspecified; E78.5 Hyperlipidemia, unspecified; I25.2 Old myocardial infarction; Z95.1 Presence of aortocoronary bypass graft; Z79.01 Long term (current) use of anticoagulants; Z95.0 Presence of cardiac pacemaker; Z87.891 Personal history of nicotine dependence; Z90.710 Acquired absence of both cervix and uterus; Z90.49 Acquired absence of other specified parts of digestive tract; Z79.82 Long term (current) use of aspirin; Y83.5 Amputation of limb(s) as the cause of abnormal reaction of the patient, or of later complication, without mention of misadventure at the time of the procedure | CPT/HCPCS: 11042 ==

== ENCOUNTER → 2020-07-28 | Outpatient (CLI) | payer MEDICARE | END | disposition home or self-care (01) | LOC: STAR 16:15 | PROVIDERS: ATTEND Podiatrist Foot & Ankle Surgery | DX: Z01.818 Encounter for other preprocedural examination (principal); L89.90 Pressure ulcer of unspecified site, unspecified stage; I48.91 Unspecified atrial fibrillation | CPT/HCPCS: 93005 ==

== ENCOUNTER 2020-08-01 06:38 | Day surgery (SDC) | payer MEDICARE ==
[2020-07-29 10:20] VITALS: BP 92/55
[~2020-08-01] VITALS: Ht 175.3 cm; Wt 49.4 kg
[2020-08-01] MEDS ORDERED: LACTATED RINGERS 1,000 ML IV SCH (07:30)
[2020-08-01] MEDS ORDERED: CHLORHEXIDINE 15 ML UDC MM ONE (07:30)
[2020-08-01] MEDS ORDERED: MIDAZOLAM 1 MG/ML, 2ML ONE (07:33)
[2020-08-01] MEDS ORDERED: FENTANYL PF 100 MCG/2ML ONE (07:34)
[2020-08-01] MEDS ORDERED: LIDOCAINE/PF 1%, 30ML ONE (08:21)
[2020-08-01] MEDS ORDERED: EPINEPHRINE 1 MG/ML, 1ML ONE (08:21)
[2020-08-01] MEDS ORDERED: BUPIVACAINE/PF 0.5% ONE (08:21)
[2020-08-01] MEDS ORDERED: PHENYLEPHRINE 10 MG/ML ONE (09:02)
[2020-08-01] MEDS ORDERED: DEXAMETHASONE 4 MG/ML, 1ML ONE (09:02)
[2020-08-01] MEDS ORDERED: hydrALAzine 20 MG/ML, 1ML IV PRN (09:30)
[2020-08-01] MEDS ORDERED: MEPERIDINE/PF 25MG/0.5ML IVPush PRN (09:30)
[2020-08-01] MEDS ORDERED: ACETAMINOPHEN 325 MG TABLET PO PRN (09:30)
[2020-08-01] MEDS ORDERED: LORazepam 2 MG/ML, 1ML IVPush PRN (09:30)
[2020-08-01] MEDS ORDERED: LABETALOL 5MG/ML, 20ML IV PRN (09:30)
[2020-08-01] MEDS ORDERED: ALBUTEROL SULFATE 2.5 MG/3 ML NPPB PRN (09:30)
[2020-08-01] MEDS ORDERED: FENTANYL PF 100 MCG/2ML IV PRN (09:30)
[2020-08-01] MEDS ORDERED: PROMETHAZINE 25 MG/ML, 1ML IVPush PRN (09:30)
[2020-08-01] MEDS ORDERED: OXYcodone 5 MG/5 ML ORAL.SOL UDC PO PRN (09:30)
[2020-08-01] MEDS ORDERED: EPINEPHRINE 1 MG/ML, 1ML INFIL ONE (09:41)
[2020-08-01] MEDS ORDERED: PROPOFOL 10 MG/ML, 20ML ONE (09:48)
[2020-08-01] MEDS ORDERED: ONDANSETRON 2MG/ML, 2ML ONE (09:48)
[2020-08-01] MEDS ORDERED: CEFAZOLIN 1,000 MG ONE (09:48)
[2020-08-01] MEDS ORDERED: CEPH-368 PO (12:04)
[2020-08-01] MEDS ORDERED: OXYC-302 PO (12:04)
== END 2020-08-01 13:05 | disposition home or self-care (01) ==
LOC: OUT 06:38
PROVIDERS: ATTEND Podiatrist Foot & Ankle Surgery
DX: L97.516 Non-pressure chronic ulcer of other part of right foot with bone involvement without evidence of necrosis (principal); M32.9 Systemic lupus erythematosus, unspecified; I48.91 Unspecified atrial fibrillation; Z79.01 Long term (current) use of anticoagulants; Z87.891 Personal history of nicotine dependence; Z95.0 Presence of cardiac pacemaker
CPT/HCPCS: 28288; 28825; 87015; 87070; 87075; 87077; 87102; 87116; 87186; 87205; 87206; J0171; J0690; J1100; J2370; J2405; J2704; J3010; J7120; 87635; J2250

== ENCOUNTER 2020-08-02 10:30 | Emergency (ER) | payer MEDICARE ==
[~2020-08-02] VITALS: Ht 175.3 cm; Wt 50.0 kg
[~2020-08-02 10:30] MED LIST changes: +OXYC-302 PO
--- NOTE | 2020-08-02 10:47 | NUR ---
THIS IS A 84 YO F BIB EMS FROM HOME W/ C/O UNCONTROLLED BLEEDING OF RT FOOT S/P RT FOOT SX YESTERDAY. PT STOPPED ELIQUIS FOR AFIB 5 DAYS AGO FOR SX. PT RESTING ON [employer] W CALL LIGHT IN REACH AND SIDE RAILS UPX2. RESP EVEN AND UNLABORED, NADN. AT BEDSIDE FOR ED EVAL.
[2020-08-02 11:37] VITALS: BP 105/42
--- NOTE | 2020-08-02 11:58 | NUR ---
ATTEMPT TO DC PT. PT AGITATED AND UNCLEAR ON PLAN. EXPLAINED TO PT THAT DRESSING WAS SATURATED AND SHE IS NOT LOSING DANGEROUS AMOUNT OF BLOOD. PT SAFE FOR DC. PT STILL DOES NOT UNDERSTAND, REQUESTING MEDICATION TO STOP BLEEDING. EXPLAINED TO PT THAT MEDICATION IN NOT INDICATED. EXPLAINED TO PT THAT SHE NEEDS TO FOLLOW UP W/ SURGEON SCHEDULED ON TUESDAY. PER OK TO RESUME ELIQUIS ON TUESDAY. PT INSISTING WAITING IN ROOM UNTIL DAUGHTER ARRIVES SO SHE CAN SPEAK W/ MD.
--- NOTE | 2020-08-02 12:42 | NUR ---
DAUGHTER HERE TO FRAME REPAIRER PT. VERBALIZED UNDERSTANDING OF DC INSTRUCTIONS. RESP EVEN AND UNLABORED, LESLIE. WHEELED TO DC DESK.
== END 2020-08-02 12:44 | disposition home or self-care (01) ==
LOC: ED 11:14
DX: S91.111A Laceration without foreign body of right great toe without damage to nail, initial encounter (principal); I50.9 Heart failure, unspecified; I48.91 Unspecified atrial fibrillation; Z90.89 Acquired absence of other organs; Z90.49 Acquired absence of other specified parts of digestive tract; Z90.710 Acquired absence of both cervix and uterus; Z87.891 Personal history of nicotine dependence; Z89.411 Acquired absence of right great toe; X58.XXXA Exposure to other specified factors, initial encounter; Y93.89 Activity, other specified; Y92.89 Other specified places as the place of occurrence of the external cause; Y99.8 Other external cause status
CPT/HCPCS: 99283

== ENCOUNTER 2020-11-09 15:51 | Inpatient (IN) | payer MEDICARE ==
[~2020-11-09] VITALS: Ht 175.3 cm; Wt 61.4 kg
[~2020-11-09 15:51] MED LIST changes: +CEFA2PLA9 IVPB; -OXYC-302 PO; +OXYC1TAB14 PO
[2020-11-09] MEDS ORDERED: SODIUM CHLORIDE FLUSH 10ML SYR IVF ONE (16:30)
[2020-11-09] MEDS ORDERED: SODIUM CHLORIDE 0.9% 1,000ML IVBOLUS ONE (16:30)
--- NOTE | 2020-11-09 16:31 | NUR ---
85 yo f w/ c/o diarrhea x1 week and stomach cramps that started last night pt states has recently taken antibiotics. hx of cdiff. Dr. Leblanc at bedside for evaluation. 20 G piv started by deepak khan. Patient hypotensive upon admission, aware. Addendum: 11/09/20 at 1635 by SUE 85 yo f w/ c/o diarrhea x1 week and stomach cramps that started last night pt states has recently taken antibiotics has hx of cdiff. 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 Leblanc at bedside for evaluation. 20 G piv started by deepak khan. Patient hypotensive upon admission, aware, 1 L bolus started per emar. patient attached to all monitors. will monitor very closely. Addendum: 11/10/20 at 0804 by SUE 85 yo f w/ c/o diarrhea x1 week and stomach cramps that started last night pt states has recently taken antibiotics. hx of cdiff. Dr. Leblanc at bedside for evaluation. 20 G piv started by deepak khan. Patient hypotensive upon ARRIVAL TO ED MD aware.
[2020-11-09 17:01] LABS: MEAN CORPUSCULAR HGB CONC 32.9 g/dL (32.4-35.8); PLATELET COUNT 272 x10^3/uL (130-400); RED BLOOD COUNT 3.36 x10^6/uL (3.82-5.3); RED CELL DISTRIBUTION WIDTH 15.8 % (9.6-15.2)
[2020-11-09 17:11] LABS: ALBUMIN 2.8 g/dL (3.4-5.0); CHLORIDE 111 mmol/L (98-107)
[2020-11-09 17:17] LABS: ALANINE AMINOTRANSFERASE 6 U/L (12-78); ALKALINE PHOSPHATASE 75 U/L (45-117); ANION GAP 7 mmol/L (5-15); BILIRUBIN,TOTAL 0.5 mg/dL (0.2-1.0); CREATININE 1.09 mg/dL (0.55-1.02)
[2020-11-09 17:22] LABS: MD YES
[2020-11-09 17:24] LABS: BAND#(MANUAL) 3.03 x10^3/uL; BANDS%(MANUAL) 25 % (0-7); BASOS#(MANUAL) 0.12 x10^3/uL (0-0.1); BASOS% (MANUAL) 1 % (0-1); EOS#(MANUAL) 0.12 x10^3/uL (0.0-0.4); EOS% (MANUAL) 1 % (1-7); LYMPH#(MANUAL) 0.85 x10^3/uL (1-3.4); LYMPHS% (MANUAL) 7 % (22-44); MONOS#(MANUAL) 0.61 x10^3/uL (0.3-2.7); MONOS% (MANUAL) 5 % (2-9); SEG#(MANUAL) 7.38 x10^3/uL (1.8-6.8); SEGS% (MANUAL) 61 % (42-75)
[2020-11-09 17:26] LABS: <PLATELET ESTIMATE> ADEQUATE; <PLT MORPHOLOGY> NORMAL PLT MORPH; ANISOCYTOSIS 1+; OVALOCYTES 1+
[2020-11-09] MEDS ORDERED: SODIUM CHLORIDE 0.9% 1,000 ML IV ONE (17:30)
--- NOTE | 2020-11-09 17:36 | NUR ---
bolus finished, bp up to 112/39, MD aware awaiting new orders.
--- NOTE | 2020-11-09 17:45 | NUR ---
WORKING TO OBTAIN UA, 3X STRAIGHT CATH ATTEMPTS, WILL CONTINUTE TO ATTEMPT
--- NOTE | 2020-11-09 17:50 | NUR ---
pt awake and alert, to ct via gurney
--- NOTE | 2020-11-09 18:33 | NUR ---
UA OBTAINED USING STRAGHT CATH PER PROTOCOL
--- NOTE | 2020-11-09 18:52 | NUR ---
report given to Cash SINGH RN, vss, nadn.
[2020-11-09 18:56] LABS: MICROSCOPIC AUTO
[2020-11-09] MEDS ORDERED: ACETAMINOPHEN 325 MG TABLET PO PRN (20:00)
[2020-11-09] MEDS ORDERED: LIDODERM 5% PATCH TD PRN (20:00)
[2020-11-09] MEDS ORDERED: DOCUSATE 100 MG CAPSULE PO PRN (20:00)
[2020-11-09] MEDS ORDERED: ALBUMIN HUMAN 25% 100 ML IV ONE (20:00)
--- NOTE | 2020-11-09 20:04 | NUR ---
Assumed pt care. Pt A&O with no complaints at this time. Pt with warmer in place. Pt with stable VS. Report called to Seema BARBER and ready to transport. 2nd Liter of NS infusing per admit [employer].
[2020-11-09 20:36] VITALS: BP 111/44
[2020-11-09] MEDS: SODIUM CHLORIDE 0.9% 1,000 ML IV SCH (21:25)
[2020-11-09 21:39] VITALS: BP 111/44
[2020-11-09 22:57] LABS: CLOSTRIDIUM DIFFICILE ANTIGEN POSITIVE; CLOSTRIDIUM DIFFICILE TOXIN POSITIVE (Negative)
[2020-11-10] MEDS: VANCOMYCIN 50 MG/ML ORAL SUSP PO SCH ×4 (00:46→18:13)
[2020-11-10 00:58] VITALS: BP 126/66
[2020-11-10 05:00] LABS: BASOPHILS % (AUTO) 1 % (0-1); EOSINOPHILS % (AUTO) 1 % (1-7); LYMPHOCYTES % (AUTO) 15 % (22-44); MEAN CORPUSCULAR HEMOGLOBIN 31.2 pg (27.0-34.8); MEAN CORPUSCULAR HGB CONC 33.4 g/dL (32.4-35.8); MONOCYTES % (AUTO) 9 % (2-9); NEUTROPHILS % (AUTO) 75 % (42-75); PLATELET COUNT 218 x10^3/uL (130-400); RED BLOOD COUNT 3.07 x10^6/uL (3.82-5.3); RED CELL DISTRIBUTION WIDTH 16.2 % (9.6-15.2)
[2020-11-10 05:02] LABS: MD NO
[2020-11-10 05:11] LABS: CALCIUM 7.9 mg/dL (8.5-10.1); CHLORIDE 115 mmol/L (98-107)
[2020-11-10 05:14] LABS: ANION GAP 6 mmol/L (5-15); CREATININE 0.98 mg/dL (0.55-1.02)
[2020-11-10] MEDS: SODIUM CHLORIDE 0.9% 1,000 ML IV SCH ×2 (06:07→20:04)
[2020-11-10] MEDS ORDERED: MAGNESIUM SULFATE PMX 2GM/50ML 50 ML IV ONE (07:30)
[2020-11-10 08:00] VITALS: BP 128/64
[2020-11-10] MEDS: APIXABAN 2.5 MG TABLET PO SCH ×2 (08:37→20:03)
[2020-11-10] MEDS: LACTOBACILLUS CHEW TABLET PO SCH ×3 (08:40→20:03)
[2020-11-10 12:12] VITALS: BP 122/61
[2020-11-10 20:16] VITALS: BP 117/52
[2020-11-10] MEDS: MELATONIN 5 MG TABLET PO PRN (21:57)
[2020-11-11 00:23] VITALS: BP 118/63
[2020-11-11] MEDS: VANCOMYCIN 50 MG/ML ORAL SUSP PO SCH ×4 (00:40→18:32)
[2020-11-11 05:06] LABS: % IRON SATURATION 4 % (20-55); ANION GAP 7 mmol/L (5-15); CALCIUM 7.9 mg/dL (8.5-10.1); CHLORIDE 116 mmol/L (98-107); CREATININE 0.84 mg/dL (0.55-1.02); IRON LEVEL 8 mcg/dL (50-170); TOTAL IRON BINDING CAPACITY 209 mcg/dL (250-450)
[2020-11-11 06:48] VITALS: BP 114/60
[2020-11-11] MEDS ORDERED: LACTOBACILLUS CHEW TABLET ONE (08:30)
[2020-11-11] MEDS: APIXABAN 2.5 MG TABLET PO SCH ×2 (08:34→21:03)
[2020-11-11] MEDS: LACTOBACILLUS CHEW TABLET PO SCH ×4 (08:39→21:03)
[2020-11-11] MEDS ORDERED: LACTOBACILLUS CHEW TABLET PO SCH (11:00)
[2020-11-11 13:53] VITALS: BP 109/57
[2020-11-11] MEDS: SODIUM CHLORIDE 0.9% 1,000 ML IV SCH (16:21)
[2020-11-11 19:35] VITALS: BP 98/45
[2020-11-12 00:25] VITALS: BP 115/48
[2020-11-12] MEDS: VANCOMYCIN 50 MG/ML ORAL SUSP PO SCH ×2 (00:45→06:18)
[2020-11-12 05:27] LABS: BASOPHILS % (AUTO) 1 % (0-1); EOSINOPHILS % (AUTO) 1 % (1-7); LYMPHOCYTES % (AUTO) 18 % (22-44); MEAN CORPUSCULAR HGB CONC 33.7 g/dL (32.4-35.8); MEAN PLATELET VOLUME 7.9 fL (7.4-10.4); MONOCYTES % (AUTO) 11 % (2-9); NEUTROPHILS % (AUTO) 69 % (42-75); PLATELET COUNT 230 x10^3/uL (130-400); RED BLOOD COUNT 3.07 x10^6/uL (3.82-5.3)
[2020-11-12 05:30] LABS: MD NO
[2020-11-12 05:38] LABS: CHLORIDE 116 mmol/L (98-107)
[2020-11-12 05:43] LABS: ANION GAP 8 mmol/L (5-15); CALCIUM 7.8 mg/dL (8.5-10.1); CREATININE 0.69 mg/dL (0.55-1.02)
[2020-11-12] MEDS: LACTOBACILLUS CHEW TABLET PO SCH ×4 (06:18→21:19)
[2020-11-12 07:34] VITALS: BP 126/64
[2020-11-12] MEDS: FIDAXOMICIN 200 MG TABLET PO SCH ×2 (09:27→21:19)
[2020-11-12] MEDS: APIXABAN 2.5 MG TABLET PO SCH ×2 (09:27→21:19)
[2020-11-12] MEDS: SODIUM CHLORIDE 0.9% 1,000 ML IV SCH (12:00)
[2020-11-12 12:05] VITALS: BP 124/57
[2020-11-12 20:23] VITALS: BP 128/61
[2020-11-12] MEDS: MELATONIN 5 MG TABLET PO PRN (21:23)
[2020-11-13 01:54] VITALS: BP 95/55
[2020-11-13] MEDS: LACTOBACILLUS CHEW TABLET PO SCH ×4 (05:56→20:58)
[2020-11-13 08:32] VITALS: BP 112/51
[2020-11-13] MEDS: FIDAXOMICIN 200 MG TABLET PO SCH ×2 (09:40→20:58)
[2020-11-13] MEDS: APIXABAN 2.5 MG TABLET PO SCH ×2 (09:40→20:58)
[2020-11-13] MEDS: SODIUM CHLORIDE 0.9% 1,000 ML IV SCH (09:41)
[2020-11-13] MEDS: ACETAMINOPHEN 325 MG TABLET PO PRN ×2 (12:32→23:10)
[2020-11-13 13:09] VITALS: BP 88/53
[2020-11-13] MEDS ORDERED: SODIUM CHLORIDE 0.9%, 500ML IVBOLUS ONE (14:00)
[2020-11-13 16:07] VITALS: BP 108/61
[2020-11-13] MEDS: MELATONIN 5 MG TABLET PO PRN (20:58)
[2020-11-13 22:41] VITALS: BP 121/63
[2020-11-14 00:22] VITALS: BP 105/64
[2020-11-14] MEDS: LACTOBACILLUS CHEW TABLET PO SCH ×4 (06:00→19:54)
[2020-11-14] MEDS: FIDAXOMICIN 200 MG TABLET PO SCH ×2 (07:35→19:54)
[2020-11-14] MEDS: APIXABAN 2.5 MG TABLET PO SCH ×2 (07:35→19:54)
[2020-11-14 07:36] VITALS: BP 111/54
[2020-11-14] MEDS: SODIUM CHLORIDE 0.9% 1,000 ML IV SCH (13:46)
[2020-11-14 14:00] VITALS: BP 102/62
[2020-11-14] MEDS ORDERED: EPINEPHRINE 1 MG/ML, 1ML IM PRN (16:30)
[2020-11-14] MEDS ORDERED: IRON DEXTRAN COMPLEX 25 MG in SODIUM CHLORIDE 0.9% 50 ML IV ONE (16:30)
[2020-11-14] MEDS ORDERED: IRON DEXTRAN COMPLEX 1,250 MG in SODIUM CHLORIDE 0.9% 250 ML IV ONE (18:00)
[2020-11-14] MEDS: ASCORBIC ACID 500 MG TABLET PO SCH (18:10)
[2020-11-14] MEDS ORDERED: IRON DEXTRAN COMPLEX 1,500 MG in SODIUM CHLORIDE 0.9% 250 ML IV ONE (19:00)
[2020-11-14 19:20] VITALS: BP 111/61
[2020-11-14] MEDS: MELATONIN 5 MG TABLET PO PRN (22:06)
[2020-11-15 00:41] VITALS: BP 116/60
[2020-11-15 04:58] LABS: BASOPHILS % (AUTO) 1 % (0-1); EOSINOPHILS % (AUTO) 1 % (1-7); LYMPHOCYTES % (AUTO) 28 % (22-44); MEAN CORPUSCULAR HEMOGLOBIN 31.3 pg (27.0-34.8); MEAN PLATELET VOLUME 7.4 fL (7.4-10.4); MONOCYTES % (AUTO) 13 % (2-9); NEUTROPHILS % (AUTO) 57 % (42-75); PLATELET COUNT 285 x10^3/uL (130-400); RED BLOOD COUNT 3.13 x10^6/uL (3.82-5.3)
[2020-11-15 05:03] LABS: ALBUMIN 2.2 g/dL (3.4-5.0); ANION GAP 6 mmol/L (5-15); CHLORIDE 116 mmol/L (98-107); CREATININE 0.68 mg/dL (0.55-1.02)
[2020-11-15 05:05] LABS: MD NO
[2020-11-15] MEDS: LACTOBACILLUS CHEW TABLET PO SCH ×4 (05:47→20:40)
[2020-11-15 08:00] VITALS: BP 123/62
[2020-11-15] MEDS: APIXABAN 2.5 MG TABLET PO SCH ×2 (08:04→20:40)
[2020-11-15] MEDS: ASCORBIC ACID 500 MG TABLET PO SCH ×2 (08:04→15:03)
[2020-11-15] MEDS: ZINC SULFATE 220 MG CAPSULE PO SCH (08:04)
[2020-11-15] MEDS: CHOLECALCIFEROL 5,000u TAB PO SCH (08:04)
[2020-11-15] MEDS: FIDAXOMICIN 200 MG TABLET PO SCH ×2 (08:04→20:41)
[2020-11-15] MEDS: MULTIVITS,STRESS FORMULA 1 TABLET PO SCH (08:04)
[2020-11-15] MEDS ORDERED: MAGNESIUM SULFATE PMX 2GM/50ML 50 ML IV ONE (09:00)
[2020-11-15 12:23] VITALS: BP 128/63
[2020-11-15] MEDS: ACETAMINOPHEN 325 MG TABLET PO PRN (15:03)
[2020-11-15] MEDS: SODIUM CHLORIDE 0.9% 1,000 ML IV SCH (17:50)
[2020-11-15 19:34] VITALS: BP 123/68
[2020-11-15] MEDS: MELATONIN 5 MG TABLET PO PRN (20:40)
[2020-11-16 01:52] VITALS: BP 129/70
[2020-11-16] MEDS: ACETAMINOPHEN 325 MG TABLET PO PRN ×3 (04:20→22:16)
[2020-11-16 05:57] LABS: BASOPHILS % (AUTO) 1 % (0-1); EOSINOPHILS % (AUTO) 1 % (1-7); LYMPHOCYTES % (AUTO) 28 % (22-44); MEAN CORPUSCULAR HEMOGLOBIN 31.1 pg (27.0-34.8); MEAN CORPUSCULAR HGB CONC 33.8 g/dL (32.4-35.8); MEAN PLATELET VOLUME 7.5 fL (7.4-10.4); MONOCYTES % (AUTO) 13 % (2-9); NEUTROPHILS % (AUTO) 58 % (42-75); PLATELET COUNT 282 x10^3/uL (130-400); RED BLOOD COUNT 3.05 x10^6/uL (3.82-5.3); RED CELL DISTRIBUTION WIDTH 16.3 % (9.6-15.2)
[2020-11-16 06:02] LABS: MD NO
[2020-11-16 06:05] LABS: ALBUMIN 2.2 g/dL (3.4-5.0); ANION GAP 4 mmol/L (5-15); CALCIUM 7.9 mg/dL (8.5-10.1); CHLORIDE 116 mmol/L (98-107); CREATININE 0.72 mg/dL (0.55-1.02)
[2020-11-16] MEDS: LACTOBACILLUS CHEW TABLET PO SCH ×4 (06:11→20:38)
[2020-11-16 08:15] VITALS: BP 120/64
[2020-11-16] MEDS: ASCORBIC ACID 500 MG TABLET PO SCH ×2 (09:04→16:07)
[2020-11-16] MEDS: FIDAXOMICIN 200 MG TABLET PO SCH ×2 (09:04→20:38)
[2020-11-16] MEDS: CHOLECALCIFEROL 5,000u TAB PO SCH (09:04)
[2020-11-16] MEDS: APIXABAN 2.5 MG TABLET PO SCH ×2 (09:04→20:38)
[2020-11-16] MEDS: MULTIVITS,STRESS FORMULA 1 TABLET PO SCH (09:04)
[2020-11-16] MEDS: ZINC SULFATE 220 MG CAPSULE PO SCH (09:04)
[2020-11-16] MEDS: CALCIUM CARBONATE 500 MG TAB.CHEW PO SCH ×2 (09:48→20:38)
[2020-11-16] MEDS: SODIUM CHLORIDE 0.9% 1,000 ML IV SCH (12:23)
[2020-11-16 12:41] VITALS: BP 135/56
[2020-11-16 20:05] VITALS: BP 146/72
[2020-11-16] MEDS: MELATONIN 5 MG TABLET PO PRN (22:16)
[2020-11-17 00:14] VITALS: BP 144/69
[2020-11-17] MEDS: LACTOBACILLUS CHEW TABLET PO SCH ×3 (06:10→18:12)
[2020-11-17 07:43] VITALS: BP 147/68
[2020-11-17] MEDS: FIDAXOMICIN 200 MG TABLET PO SCH ×2 (08:02→20:11)
[2020-11-17] MEDS: CHOLESTYRAMINE LIGHT 4GM PACKET PO SCH (08:02)
[2020-11-17] MEDS: ZINC SULFATE 220 MG CAPSULE PO SCH (08:02)
[2020-11-17] MEDS: ASCORBIC ACID 500 MG TABLET PO SCH ×2 (08:02→18:12)
[2020-11-17] MEDS: CHOLECALCIFEROL 5,000u TAB PO SCH (08:02)
[2020-11-17] MEDS: MULTIVITS,STRESS FORMULA 1 TABLET PO SCH (08:02)
[2020-11-17] MEDS: APIXABAN 2.5 MG TABLET PO SCH ×2 (08:02→20:11)
[2020-11-17] MEDS: CALCIUM CARBONATE 500 MG TAB.CHEW PO SCH ×2 (08:02→20:10)
[2020-11-17] MEDS: SODIUM CHLORIDE 0.9% 1,000 ML IV SCH (08:06)
[2020-11-17] MEDS: ACETAMINOPHEN 325 MG TABLET PO PRN (10:01)
[2020-11-17 15:15] VITALS: BP 119/69
[2020-11-17 19:27] VITALS: BP 148/69
[2020-11-18 00:22] VITALS: BP 149/67
[2020-11-18] MEDS: LACTOBACILLUS CHEW TABLET PO SCH ×5 (00:24→20:11)
[2020-11-18] MEDS: SODIUM CHLORIDE 0.9% 1,000 ML IV SCH ×2 (03:31→23:40)
[2020-11-18] MEDS: ACETAMINOPHEN 325 MG TABLET PO PRN (03:32)
[2020-11-18 06:45] VITALS: BP 131/71
[2020-11-18] MEDS: CHOLESTYRAMINE LIGHT 4GM PACKET PO SCH (09:44)
[2020-11-18] MEDS: FIDAXOMICIN 200 MG TABLET PO SCH ×2 (09:44→20:11)
[2020-11-18] MEDS: CALCIUM CARBONATE 500 MG TAB.CHEW PO SCH ×2 (09:44→20:12)
[2020-11-18] MEDS: CHOLECALCIFEROL 5,000u TAB PO SCH (09:44)
[2020-11-18] MEDS: APIXABAN 2.5 MG TABLET PO SCH ×2 (09:45→20:11)
[2020-11-18] MEDS: ASCORBIC ACID 500 MG TABLET PO SCH ×2 (09:45→17:48)
[2020-11-18] MEDS: MULTIVITS,STRESS FORMULA 1 TABLET PO SCH (09:45)
[2020-11-18] MEDS: ZINC SULFATE 220 MG CAPSULE PO SCH (10:06)
[2020-11-18 12:28] VITALS: BP 144/78
[2020-11-18 20:13] VITALS: BP 144/66
[2020-11-19 00:45] VITALS: BP 147/68
[2020-11-19] MEDS: LACTOBACILLUS CHEW TABLET PO SCH ×4 (05:43→21:11)
[2020-11-19 06:39] VITALS: BP 148/65
[2020-11-19] MEDS: CHOLESTYRAMINE LIGHT 4GM PACKET PO SCH (08:17)
[2020-11-19] MEDS: FIDAXOMICIN 200 MG TABLET PO SCH ×2 (08:18→21:11)
[2020-11-19] MEDS: ZINC SULFATE 220 MG CAPSULE PO SCH (08:18)
[2020-11-19] MEDS: APIXABAN 2.5 MG TABLET PO SCH ×2 (08:18→21:11)
[2020-11-19] MEDS: CHOLECALCIFEROL 5,000u TAB PO SCH (08:19)
[2020-11-19 09:26] LABS: TROPONIN I < 0.015 ng/mL (0.000-0.045)
[2020-11-19] MEDS: MULTIVITS,STRESS FORMULA 1 TABLET PO SCH (10:53)
[2020-11-19] MEDS: ASCORBIC ACID 500 MG TABLET PO SCH ×2 (10:54→17:02)
[2020-11-19] MEDS: CALCIUM CARBONATE 500 MG TAB.CHEW PO SCH ×2 (10:54→21:10)
[2020-11-19 12:03] VITALS: BP 152/67
[2020-11-19 15:06] LABS: TROPONIN I 0.018 ng/mL (0.000-0.045)
[2020-11-19 19:29] VITALS: BP 150/70
[2020-11-19] MEDS: ACETAMINOPHEN 325 MG TABLET PO PRN (21:10)
[2020-11-19] MEDS: SODIUM CHLORIDE 0.9% 1,000 ML IV SCH (22:19)
[2020-11-19] MEDS: MELATONIN 5 MG TABLET PO PRN (22:25)
[2020-11-20 01:06] VITALS: BP 126/72
[2020-11-20] MEDS: LACTOBACILLUS CHEW TABLET PO SCH ×3 (05:46→16:00)
[2020-11-20 07:32] VITALS: BP 128/73
[2020-11-20] MEDS: ASCORBIC ACID 500 MG TABLET PO SCH (08:51)
[2020-11-20] MEDS: CHOLESTYRAMINE LIGHT 4GM PACKET PO SCH (08:51)
[2020-11-20] MEDS: FIDAXOMICIN 200 MG TABLET PO SCH (08:51)
[2020-11-20] MEDS: APIXABAN 2.5 MG TABLET PO SCH (08:51)
[2020-11-20] MEDS: ZINC SULFATE 220 MG CAPSULE PO SCH (08:51)
[2020-11-20] MEDS: MULTIVITS,STRESS FORMULA 1 TABLET PO SCH (08:51)
[2020-11-20] MEDS: CHOLECALCIFEROL 5,000u TAB PO SCH (08:51)
[2020-11-20 12:36] VITALS: BP 122/71
[2020-11-20] MEDS ORDERED: FIDA200T PO (14:55)
[2020-11-20] MEDS: SODIUM CHLORIDE 0.9% 1,000 ML IV SCH (16:00)
== END 2020-11-20 16:47 | disposition home health service (06) | DRG 371 ==
LOC: ED 16:15 → EDIP 18:37 → 3N 20:20 → 4EST 11-19 17:37
PROVIDERS: ADMIT Family Medicine; ATTEND Internal Medicine
PROC: 0T9B70Z Drainage of Bladder with Drainage Device, Via Natural or Artificial Opening (ICD-10-PCS; principal; 2020-11-09)
DX: A04.72 Enterocolitis due to Clostridium difficile, not specified as recurrent (principal); E43 Unspecified severe protein-calorie malnutrition; D68.69 Other thrombophilia; I31.3 Pericardial effusion (noninflammatory); R18.8 Other ascites; Z68.1 Body mass index [BMI] 19.9 or less, adult; E86.0 Dehydration; D50.9 Iron deficiency anemia, unspecified; E03.9 Hypothyroidism, unspecified; E83.42 Hypomagnesemia; E83.51 Hypocalcemia; I50.9 Heart failure, unspecified; I73.00 Raynaud's syndrome without gangrene; I73.9 Peripheral vascular disease, unspecified; I95.9 Hypotension, unspecified; Z90.710 Acquired absence of both cervix and uterus; Z90.49 Acquired absence of other specified parts of digestive tract; Z89.429 Acquired absence of other toe(s), unspecified side; Z90.722 Acquired absence of ovaries, bilateral; Z82.49 Family history of ischemic heart disease and other diseases of the circulatory system; Z80.9 Family history of malignant neoplasm, unspecified; Z83.3 Family history of diabetes mellitus
CPT/HCPCS: 36415; 71045; 74176; 80048; 80053; 80069; 81001; 82330; 83540; 83550; 83690; 83735; 84100; 84484; 85025; 87324; 93005; 96360; 96361; G0378; J1750; J3370; P9047; J3475; J7030; J7040; J7050